=== PATIENT | female | born 1970 | race Caucasian/White ===

== ENCOUNTER → 2022-06-14 | Outpatient (CLI) | payer BC, SELFPAY ==
[2022-06-14 17:15] LABS: Absolute Lymphocyte Count 2.35 X10^3/uL (0.83-4.51); Absolute Neutrophil Count 5.3 X10^3/uL (2.0-7.7); Basophil# 0.09 X10^3/uL; Eosinophil# 0.37 X10^3/uL; Eosinophils% 4.2 % (0-5); Hematocrit 44.8 % (37-47); Hemoglobin 14.5 g/dL (12.0-15.0); Lymphocyte # 2.35 X10^3/ul (0.83-4.51); Lymphocyte % 26.6 % (19-41); Mean Corp Hgb Conc 32.4 g/dL (32-36); Mean Corpuscular Hgb 28.5 pg (27.0-32.0); Mean Corpuscular Volume 88.2 fL (81-99); Mean Platelet Vol. 12.5 fl (6.2-12.0); Monocyte# 0.73 X10^3/uL; Monocyte% 8.3 % (0-10); NRBC Flagged by Analyzer 0 % (0-5); Neutrophil # 5.26 X10^3/uL (2.7-7.7); Neutrophil % 59.6 % (47-70); Platelet Count 249 K/mm3 (150-450); RBC Distribution Width CV 13.5 % (11.6-14.6); RBC Distribution Width SD 43.7 fl (35.1-43.9); Red Blood Count 5.08 M/mm3 (4.2-5.4); White Blood Count 8.8 K/mm3 (4.4-11.0)
[2022-06-14 18:00] LABS: ALB/GLOB Ratio 0.7 RATIO (0.9-2.4); AST(SGOT) 24 U/L (15-37); Alanine Aminotransfer ALT/SGPT 31 U/L (13-56); Albumin, Serum 3.3 g/dL (3.2-5.0); Alkaline Phosphatase 117 U/L (45-117); Anion Gap 8 (5-15); BUN 10 mg/dL (7-18); BUN/Creat Ratio 12.4 RATIO (10-20); Calcium,Total 9.7 mg/dL (8.5-10.1); Chloride 103 mmol/L (98-107); Creatinine, Serum 0.81 mg/dL (0.55-1.02); EST Glomerular Filtration Rate 79 mL/min (>60); Est Glom Filt Rate - Afr Amer 96 mL/min (>60); Globulin 4.7 g/dL (2.2-4.2); Glucose 99 mg/dL (74-106); Potassium 3.9 mmol/L (3.5-5.1); Sodium Level 137 mmol/L (136-145); Thyroid Stim Hormone (TSH) 2.64 uIU/mL (0.358-3.74)
[2022-06-14 18:06] LABS: Hepatitis C Antibody Non-Reactive (Nonreactive); Vitamin D,25 Hydroxy 15.9 ng/mL
== END | disposition home or self-care (01) ==
LOC: POLAB3 15:20
PROVIDERS: Visit Provider Family Medicine Geriatric Medicine
DX: Z00.00 Encounter for general adult medical examination without abnormal findings (principal); R53.83 Other fatigue; E55.9 Vitamin D deficiency, unspecified
CPT/HCPCS: 36415; 80053; 82306; 84443; 85025; 86803

== ENCOUNTER → 2022-06-22 | Outpatient (CLI) | payer BC, SELFPAY ==
--- NOTE | 2022-06-23 09:26 | PFT ---
INTRODUCTION: The patient is a 52-year-old female that presents for pulmonary function studies secondary to a diagnosis of wheezing. Respiratory therapy reported good patient effort. Bronchodilators were used during testing. INTERPRETATION: Forced expiration spirometry demonstrates no evidence of a large airways obstructive ventilatory defect. There was no significant response to aerosolized bronchodilators. Spirograms are of good quality and plateau normally. Body plethysmography was performed and revealed a decreased TLC to 4.3 L, 82% of predicted, indicative of a mild restrictive ventilatory impairment. Diffusing capacity by single breath CO was reduced to 55% of predicted. IMPRESSION: Mild restrictive ventilatory impairment with symmetric reduction in diffusing capacity.
== END | disposition home or self-care (01) ==
PROVIDERS: PCP Family Medicine Geriatric Medicine; Referring Provider Family Medicine Geriatric Medicine; Visit Provider Family Medicine Geriatric Medicine
DX: R06.2 Wheezing (principal)
CPT/HCPCS: 94060; 94726; 94729

== ENCOUNTER → 2022-06-29 | Outpatient (CLI) | payer BC, SELFPAY ==
--- NOTE | 2022-06-29 14:03 | VDLE_ITS ---
Reason For Study: Edema RIGHT LEFT GSV is normal. CFV is compressible, spontaneous, phasic, CFV is compressible, spontaneous, phasic, competent, and demonstrates normal competent and demonstrates normal augmentation. augmentation. FV is compressible, spontaneous, phasic, competent and demonstrates normal augmentation. POP V is compressible, spontaneous, phasic, competent and demonstrates normal augmentation. T/P Trunk is compressible. PTV is compressible. RT PerV is compressible. Vascularized lymph node measuring approximately 2.26cm x 1.14cm noted in right groin. Procedure This is a venous duplex using B-mode, color flow and spectral Doppler. Exam performed in department. The exam was diagnostic. A preliminary report was called and/or faxed to Dr. Dickey's office. VL/Venous Duplex US, Unilateral Interpretation Summary Deep veins of the right lower extremity are patent and compressible segmentally . There is no evidence of right lower extremity deep vein thrombosis. The right great sapheno us vein appears patent and compressible segmentally. Vascularized lymph node measuring approximately 2.26cm x 1.14cm noted in right groin. Ordering Physician: Lemuel Dickey Chi Referring Physician: Lemuel Dickey Chi Performed By: Gutierrez Petty RVT
== END | disposition home or self-care (01) ==
PROVIDERS: PCP Family Medicine Geriatric Medicine; Referring Provider Family Medicine Geriatric Medicine; Visit Provider Family Medicine Geriatric Medicine
DX: R60.9 Edema, unspecified (principal)
CPT/HCPCS: 93971

== ENCOUNTER → 2022-09-13 | Outpatient (CLI) | payer BC, SELFPAY ==
[2022-09-13 11:48] LABS: Absolute Neutrophil Count 6.5 X10^3/uL (2.0-7.7); Basophil# 0.09 X10^3/uL; Basophil% 0.8 % (0-1); Eosinophil# 0.32 X10^3/uL; Eosinophils% 2.9 % (0-5); Hematocrit 45.6 % (37-47); Hemoglobin 14.6 g/dL (12.0-15.0); Lymphocyte % 29.9 % (19-41); Mean Corpuscular Hgb 28.5 pg (27.0-32.0); Mean Corpuscular Volume 89.1 fL (81-99); Mean Platelet Vol. 11.6 fl (6.2-12.0); Monocyte# 0.77 X10^3/uL; NRBC Flagged by Analyzer 0 % (0-5); Neutrophil # 6.53 X10^3/uL (2.7-7.7); Platelet Count 287 K/mm3 (150-450); RBC Distribution Width CV 13.4 % (11.6-14.6); RBC Distribution Width SD 43.8 fl (35.1-43.9); Red Blood Count 5.12 M/mm3 (4.2-5.4); White Blood Count 11.1 K/mm3 (4.4-11.0)
[2022-09-13 12:33] LABS: ALB/GLOB Ratio 0.7 RATIO (0.9-2.4); AST(SGOT) 29 U/L (15-37); Alanine Aminotransfer ALT/SGPT 28 U/L (13-56); Albumin, Serum 3.3 g/dL (3.2-5.0); Alkaline Phosphatase 105 U/L (45-117); Anion Gap 2 (5-15); BUN 11 mg/dL (7-18); BUN/Creat Ratio 12.8 RATIO (10-20); Calcium,Total 9.4 mg/dL (8.5-10.1); Chloride 106 mmol/L (98-107); Creatinine, Serum 0.86 mg/dL (0.55-1.02); EST Glomerular Filtration Rate 74 mL/min (>60); Est Glom Filt Rate - Afr Amer 89 mL/min (>60); Globulin 4.7 g/dL (2.2-4.2); Glucose 110 mg/dL (74-106); Potassium 5.3 mmol/L (3.5-5.1); Sodium Level 136 mmol/L (136-145)
== END | disposition home or self-care (01) ==
LOC: LAB 11:21
PROVIDERS: PCP Family Medicine Geriatric Medicine; Referring Provider Family Medicine Geriatric Medicine; Visit Provider Family Medicine Geriatric Medicine
DX: R53.83 Other fatigue (principal)
CPT/HCPCS: 36415; 80053; 84443; 85025

== ENCOUNTER → 2022-09-15 | Outpatient (CLI) | payer BC, SELFPAY ==
[2022-09-15 09:47] LABS: Absolute Lymphocyte Count 3.14 X10^3/uL (0.83-4.51); Absolute Neutrophil Count 6.2 X10^3/uL (2.0-7.7); Basophil# 0.09 X10^3/uL; Basophil% 0.8 % (0-1); Eosinophil# 0.33 X10^3/uL; Eosinophils% 3.1 % (0-5); Hemoglobin 14.7 g/dL (12.0-15.0); Lymphocyte # 3.14 X10^3/ul (0.83-4.51); Lymphocyte % 29.3 % (19-41); Mean Corpuscular Hgb 28.6 pg (27.0-32.0); Mean Corpuscular Volume 89.5 fL (81-99); Mean Platelet Vol. 11.9 fl (6.2-12.0); Monocyte# 0.89 X10^3/uL; Monocyte% 8.3 % (0-10); NRBC Flagged by Analyzer 0 % (0-5); Neutrophil % 57.9 % (47-70); Platelet Count 270 K/mm3 (150-450); RBC Distribution Width CV 13.5 % (11.6-14.6); RBC Distribution Width SD 44.5 fl (35.1-43.9); Red Blood Count 5.14 M/mm3 (4.2-5.4); White Blood Count 10.7 K/mm3 (4.4-11.0)
[2022-09-15 10:22] LABS: ALB/GLOB Ratio 0.7 RATIO (0.9-2.4); AST(SGOT) 12 U/L (15-37); Alanine Aminotransfer ALT/SGPT 26 U/L (13-56); Albumin, Serum 3.3 g/dL (3.2-5.0); Alkaline Phosphatase 114 U/L (45-117); Anion Gap 6 (5-15); BUN 12 mg/dL (7-18); BUN/Creat Ratio 14.1 RATIO (10-20); Calcium,Total 9.7 mg/dL (8.5-10.1); Chloride 104 mmol/L (98-107); Creatinine, Serum 0.85 mg/dL (0.55-1.02); EST Glomerular Filtration Rate 74 mL/min (>60); Est Glom Filt Rate - Afr Amer 90 mL/min (>60); Globulin 4.7 g/dL (2.2-4.2); Glucose 76 mg/dL (74-106); Potassium 4.1 mmol/L (3.5-5.1); Sodium Level 140 mmol/L (136-145); Thyroid Stim Hormone (TSH) 5.09 uIU/mL (0.358-3.74)
== END | disposition home or self-care (01) ==
LOC: LAB 09:03
PROVIDERS: PCP Family Medicine Geriatric Medicine; Visit Provider Family Medicine Geriatric Medicine
DX: R53.83 Other fatigue (principal)
CPT/HCPCS: 36415; 80053; 84443; 85025

== ENCOUNTER → 2022-11-06 | Outpatient (CLI) | payer BC, SELFPAY ==
[2022-11-06 16:15] LABS: Thyroid Stim Hormone (TSH) 1.72 uIU/mL (0.358-3.74)
== END | disposition home or self-care (01) ==
LOC: LAB 14:41
PROVIDERS: PCP Family Medicine Geriatric Medicine; Referring Provider Family Medicine Geriatric Medicine; Visit Provider Family Medicine Geriatric Medicine
DX: E03.9 Hypothyroidism, unspecified (principal)
CPT/HCPCS: 36415; 84443

== ENCOUNTER → 2022-12-14 | Outpatient (CLI) | payer BC, SELFPAY ==
[2022-12-14 11:25] LABS: Absolute Lymphocyte Count 2.97 X10^3/uL (0.83-4.51); Absolute Neutrophil Count 6.7 X10^3/uL (2.0-7.7); Basophil# 0.08 X10^3/uL; Basophil% 0.7 % (0-1); Eosinophil# 0.31 X10^3/uL; Eosinophils% 2.9 % (0-5); Hematocrit 43.7 % (37-47); Hemoglobin 14.4 g/dL (12.0-15.0); Lymphocyte # 2.97 X10^3/ul (0.83-4.51); Lymphocyte % 27.3 % (19-41); Mean Corpuscular Hgb 29.4 pg (27.0-32.0); Mean Corpuscular Volume 89.2 fL (81-99); Mean Platelet Vol. 12.4 fl (6.2-12.0); Monocyte# 0.77 X10^3/uL; Monocyte% 7.1 % (0-10); NRBC Flagged by Analyzer 0 % (0-5); Neutrophil # 6.69 X10^3/uL (2.7-7.7); Neutrophil % 61.6 % (47-70); Platelet Count 233 K/mm3 (150-450); RBC Distribution Width CV 13.6 % (11.6-14.6); RBC Distribution Width SD 44.1 fl (35.1-43.9); White Blood Count 10.9 K/mm3 (4.4-11.0)
[2022-12-14 12:43] LABS: ALB/GLOB Ratio 0.7 RATIO (0.9-2.4); AST(SGOT) 15 U/L (15-37); Alanine Aminotransfer ALT/SGPT 25 U/L (13-56); Albumin, Serum 3.4 g/dL (3.2-5.0); Alkaline Phosphatase 117 U/L (45-117); Anion Gap 5 (5-15); BUN 11 mg/dL (7-18); BUN/Creat Ratio 14.1 RATIO (10-20); Calcium,Total 9.3 mg/dL (8.5-10.1); Chloride 106 mmol/L (98-107); Creatinine, Serum 0.78 mg/dL (0.55-1.02); EST Glomerular Filtration Rate 82 mL/min (>60); Est Glom Filt Rate - Afr Amer 100 mL/min (>60); Globulin 4.7 g/dL (2.2-4.2); Glucose 91 mg/dL (74-106); Potassium 3.9 mmol/L (3.5-5.1); Protein, Total 8.1 g/dL (6.4-8.2); Sodium Level 138 mmol/L (136-145); Thyroid Stim Hormone (TSH) 1.22 uIU/mL (0.358-3.74)
== END | disposition home or self-care (01) ==
LOC: POLAB3 10:43
PROVIDERS: PCP Family Medicine Geriatric Medicine; Visit Provider Family Medicine Geriatric Medicine
DX: E87.5 Hyperkalemia (principal); R53.83 Other fatigue
CPT/HCPCS: 36415; 80053; 84443; 85025

== ENCOUNTER → 2023-04-11 | Outpatient (CLI) | payer BC, SELFPAY ==
[2023-04-11 10:37] LABS: Absolute Lymphocyte Count 2.95 X10^3/uL (0.83-4.51); Basophil# 0.09 X10^3/uL; Basophil% 0.9 % (0-1); Eosinophils% 3.9 % (0-5); Hematocrit 46.2 % (37-47); Hemoglobin 14.8 g/dL (12.0-15.0); Lymphocyte # 2.95 X10^3/ul (0.83-4.51); Mean Corpuscular Hgb 28.6 pg (27.0-32.0); Mean Corpuscular Volume 89.2 fL (81-99); Mean Platelet Vol. 11.9 fl (6.2-12.0); Monocyte% 6.9 % (0-10); NRBC Flagged by Analyzer 0 % (0-5); Neutrophil # 5.98 X10^3/uL (2.7-7.7); Neutrophil % 58.7 % (47-70); Platelet Count 275 K/mm3 (150-450); RBC Distribution Width CV 13.5 % (11.6-14.6); Red Blood Count 5.18 M/mm3 (4.2-5.4); White Blood Count 10.2 K/mm3 (4.4-11.0)
[2023-04-11 11:16] LABS: ALB/GLOB Ratio 0.7 RATIO (0.9-2.4); AST(SGOT) 16 U/L (15-37); Alanine Aminotransfer ALT/SGPT 26 U/L (13-56); Albumin, Serum 3.3 g/dL (3.2-5.0); Alkaline Phosphatase 134 U/L (45-117); Anion Gap 7 (5-15); BUN 11 mg/dL (7-18); BUN/Creat Ratio 12.8 RATIO (10-20); Calcium,Total 9.7 mg/dL (8.5-10.1); Chloride 105 mmol/L (98-107); Creatinine, Serum 0.86 mg/dL (0.55-1.02); EST Glomerular Filtration Rate 74 mL/min (>60); Est Glom Filt Rate - Afr Amer 89 mL/min (>60); Globulin 4.6 g/dL (2.2-4.2); Glucose 146 mg/dL (74-106); Potassium 3.8 mmol/L (3.5-5.1); Protein, Total 7.9 g/dL (6.4-8.2); Sodium Level 138 mmol/L (136-145); Thyroid Stim Hormone (TSH) 2.39 uIU/mL (0.358-3.74)
== END | disposition home or self-care (01) ==
LOC: POLAB3 10:10
PROVIDERS: PCP Family Medicine Geriatric Medicine; Visit Provider Family Medicine Geriatric Medicine
DX: R53.83 Other fatigue (principal)
CPT/HCPCS: 36415; 80053; 84443; 85025

== ENCOUNTER → 2023-06-18 | Outpatient (CLI) | payer BC, SELFPAY ==
[2023-06-18 13:01] LABS: Absolute Lymphocyte Count 2.51 X10^3/uL (0.83-4.51); Absolute Neutrophil Count 5.6 X10^3/uL (2.0-7.7); Basophil# 0.08 X10^3/uL; Basophil% 0.9 % (0-1); Eosinophil# 0.33 X10^3/uL; Eosinophils% 3.6 % (0-5); Hematocrit 42.4 % (37-47); Hemoglobin 13.8 g/dL (12.0-15.0); Lymphocyte # 2.51 X10^3/ul (0.83-4.51); Lymphocyte % 27.5 % (19-41); Mean Corp Hgb Conc 32.5 g/dL (32-36); Mean Corpuscular Hgb 28.9 pg (27.0-32.0); Mean Corpuscular Volume 88.7 fL (81-99); Mean Platelet Vol. 12.5 fl (6.2-12.0); Monocyte# 0.59 X10^3/uL; Monocyte% 6.5 % (0-10); NRBC Flagged by Analyzer 0 % (0-5); Neutrophil # 5.58 X10^3/uL (2.7-7.7); Neutrophil % 61.1 % (47-70); Platelet Count 217 K/mm3 (150-450); RBC Distribution Width CV 13.4 % (11.6-14.6); RBC Distribution Width SD 43.5 fl (35.1-43.9); Red Blood Count 4.78 M/mm3 (4.2-5.4); White Blood Count 9.1 K/mm3 (4.4-11.0)
[2023-06-18 13:44] LABS: ALB/GLOB Ratio 0.7 RATIO (0.9-2.4); AST(SGOT) 18 U/L (15-37); Alanine Aminotransfer ALT/SGPT 21 U/L (13-56); Albumin, Serum 3.3 g/dL (3.2-5.0); Alkaline Phosphatase 113 U/L (45-117); Anion Gap 5 (5-15); BUN 10 mg/dL (7-18); BUN/Creat Ratio 13.2 RATIO (10-20); Calcium,Total 9.4 mg/dL (8.5-10.1); Chloride 107 mmol/L (98-107); Creatinine, Serum 0.76 mg/dL (0.55-1.02); EST Glomerular Filtration Rate 85 mL/min (>60); Est Glom Filt Rate - Afr Amer 103 mL/min (>60); Globulin 4.5 g/dL (2.2-4.2); Glucose 120 mg/dL (74-106); Potassium 3.9 mmol/L (3.5-5.1); Protein, Total 7.8 g/dL (6.4-8.2); Sodium Level 138 mmol/L (136-145); Thyroid Stim Hormone (TSH) 2.04 uIU/mL (0.358-3.74)
== END | disposition home or self-care (01) ==
LOC: POLAB3 12:01
PROVIDERS: PCP Family Medicine Geriatric Medicine; Visit Provider Family Medicine Geriatric Medicine
DX: R53.83 Other fatigue (principal)
CPT/HCPCS: 36415; 80053; 84443; 85025

== ENCOUNTER → 2023-07-06 | Outpatient (CLI) | payer BC, SELFPAY ==
--- NOTE | 2023-07-06 08:06 | BI_ITS ---
MAMMOGRAPHY - BILATERAL SCREENING REASON FOR EXAM: Female, 53 years old. Routine annual screening examination. PERTINENT HISTORY: Aunt with breast cancer. TECHNIQUE: Digital bilateral breast malick (3D mammographic acquisition) in the CC and MLO projections. 2-D mediolateral oblique (MLO) and craniocaudad (CC) views of both breasts were obtained. CAD: Full Field Digital Mammography with Computer Added Detection was performed. COMPARISON: No comparison mammograms available at this time. If any prior films become available, an addendum to this report can be generated. FINDINGS: Breast Composition: The breasts are almost entirely fatty. There are no dominant masses or suspicious calcifications. Fat-containing bilateral axillary lymph nodes. No other significant abnormalities are identified. BI/SCRN MAMM (CAD)W/MALICK BILAT IMPRESSION: Negative screening mammogram. Yearly followup mammogram recommended. (A) ASSESSMENT CATEGORY: BIRADS Category 2: Benign. A letter regarding these results will be sent to the patient by the facility within 30 days. Approximately 10% of breast cancers are not detected by mammography. A normal mammogram should not delay biopsy of a clinically suspicious abnormality. [id number] Electronically Signed: Lizandro Larson MD at 9:01 EDT ,
--- NOTE | 2023-07-06 08:36 | VDLE_ITS ---
Reason For Study: BLE swelling RIGHT LEFT GSV is normal. GSV is normal. CFV is compressible, spontaneous, phasic, CFV is compressible, spontaneous, phasic, competent and demonstrates normal competent, and demonstrates normal augmentation. augmentation. FV is compressible, spontaneous, phasic, FV is compressible, spontaneous, phasic, competent and demonstrates normal competent and demonstrates normal augmentation. augmentation. POP V is compressible, spontaneous, phasic, POP V is compressible, spontaneous, phasic, competent and demonstrates normal competent and demonstrates normal augmentation. augmentation. T/P Trunk is compressible. T/P Trunk is compressible. PTV is compressible. PTV is compressible. RT PerV is compressible. LT PerV is compressible. Procedure This is a venous duplex using B-mode, color flow and spectral Doppler. Exam performed in department. The exam was diagnostic. VL/Venous Duplex US - Rohan Extrem Interpretation Summary No evidence for acute deep venous thrombosis bilateral lower extremities with p atent and compressible bilateral great saphenous veins. Ordering Physician: Lemuel Dickey Chi Referring Physician: Lemuel Dickey Chi Performed By: Gutierrez Petty RVT
== END | disposition home or self-care (01) ==
LOC: CVS 08:05
PROVIDERS: PCP Family Medicine Geriatric Medicine; Referring Provider Family Medicine Geriatric Medicine; Visit Provider Family Medicine Geriatric Medicine
DX: Z12.31 Encounter for screening mammogram for malignant neoplasm of breast (principal); Z80.3 Family history of malignant neoplasm of breast; M79.89 Other specified soft tissue disorders; R60.0 Localized edema; I77.9 Disorder of arteries and arterioles, unspecified; F17.210 Nicotine dependence, cigarettes, uncomplicated
CPT/HCPCS: 77063; 77067; 93970

== ENCOUNTER → 2023-07-12 | Outpatient (CLI) | payer BC, SELFPAY ==
--- NOTE | 2023-07-12 06:44 | CT_ITS ---
STUDY: LOW DOSE CT LUNG CANCER SCREENING REASON FOR EXAM: Female, 53 years old. NICOTINE DEPENDENCE 1 PPD X 20 + YRS RADIATION DOSAGE (If Supplied By Facility): CTDIvol = ( 4.02 ) mGy, DLP = ( 135.92 ) mGycm TECHNIQUE: No contrast was administered. Low dose technique was utilized (average mAS-38 and kVp 120). 1.25 mm axial source images with a slice interval of 1.25-mm were reconstructed in lung windows. 2.5 mm axial source images with a slice interval of 2.5-mm were reconstructed in lung windows. 5.0 mm axial source images with a slice interval of 5.0-mm were reconstructed in soft tissue windows. COMPARISON: None. NODULES: No suspicious nodules are seen. Emphysema: Unremarkable Endobronchial lesion: Unremarkable Aorta: Unremarkable CORONARY ARTERIES: Coronary artery calcification is seen. Heart: Unremarkable Pulmonary artery: Unremarkable Mediastinal nodes: Small benign-appearing mediastinal lymph nodes. Other chest and abdominal findings: CT/Low Dose CT Lung Screening IMPRESSION: Lung-RADS category 2 - Continue annual screening with LDCT in 12 months. IMPORTANT NOTES FOR USE: ACR Lung-RADS Version 1.1 Assessment Categories Release Date: 2018 Category: Coded 0-4 bases on nodule(s) with highest degree of suspicion. Negative screen is defined as categories 1 and 2; a positive screen is defined as categories 3 and 4. Category 3 and 4A nodules that are unchanged on interval CT should be coded as category 2, and individuals returned to screening in 12 months. Category 4X: Category 3 or 4 nodules with additional imaging findings that increase the suspicion of lung cancer, such as spiculation, GGN that doubles in size in 1 year, enlarged lymph notes, etc. Category Modifiers: S (significant finding unrelated to lung cancer) Electronically Signed: Lizandro Larson MD at 8:51 EDT ,
== END | disposition home or self-care (01) ==
LOC: CT 06:43
PROVIDERS: PCP Family Medicine Geriatric Medicine; Referring Provider Family Medicine Geriatric Medicine; Visit Provider Family Medicine Geriatric Medicine
DX: Z12.2 Encounter for screening for malignant neoplasm of respiratory organs (principal); F17.210 Nicotine dependence, cigarettes, uncomplicated
CPT/HCPCS: 71271

== ENCOUNTER 2023-10-09 17:31 | Emergency (ER) | payer BC, SELFPAY ==
[2023-10-09 17:32] VITALS: BP 118/78; PULSE 83; RESP 16; TEMP 36.6; O2SAT 98; BMI 38.1
--- NOTE | 2023-10-09 18:32 | CT_ITS ---
STUDY: CT ABDOMEN AND PELVIS WITH CONTRAST REASON FOR EXAM: Female, 53 years old. Abdominal pain, nausea and vomiting RADIATION DOSAGE (If Supplied By Facility): CTDIvol = ( 20.32 ) mGy, DLP = ( 1249.02 ) mGycm TECHNIQUE: Transaxial images were obtained from the dome of the diaphragm to the symphysis pubis without oral contrast. IV 100mL Isovue-[id number] was administered. Sagittal and coronal images were reconstructed. Individualized dose optimization techniques were used for this CT. COMPARISON: None. FINDINGS: The visualized lung bases are unremarkable. The visualized portions of the heart are within normal limits. There is hepatomegaly with diffuse hepatic enlargement. There are surgical clips in the gallbladder fossa consistent with a prior cholecystectomy. There is moderate splenomegaly. Normal pancreas. Normal bilateral adrenal glands. Normal right kidney. There is 2.6 cm cyst of the left kidney. Normal visualized stomach. Normal small intestine. Normal colon. There is non-visualization of the appendix. There is diffuse atherosclerotic calcification of the abdominal aorta, without a demonstrated aneurysm. Normal inferior vena cava. Normal retroperitoneum. Normal urinary bladder. There is absence of the uterus consistent with a prior hysterectomy. There is no free fluid in the abdomen or pelvis. Normal abdominal wall. There is degenerative change of the spine. CT/Abdomen/Pelvis W IV Cont ONLY IMPRESSION: Hepatosplenomegaly. Prior cholecystectomy. Electronically Signed: Rui Kenny MD at 20:51 EDT ,
--- NOTE | 2023-10-09 18:33 | ED.VIS.GI ---
HPI HPI - GI History of Present Illness Chief Complaint: Constipation Narrative Narrative: 53-year-old female past medical history of thyroid problems, restless leg, presents with constipation that she has had for 2 weeks. While she states that she might go once or twice a week/have a bowel movement, she has not been able to have a bowel movement for the last 2 weeks. She has had nausea and vomiting intermittently over the last 2 weeks as well. She is only vomited once in the last 24 hours. She has tried every [id number] method to have a bowel movement including suppositories. Past surgical abdominal history includes cholecystectomy and hysterectomy. She describes diffuse abdominal cramping, and epigastric pain as well. PFSH PFSH Home Medications ?Medication ?Instructions ?Recorded ?Last Taken ?Type levothyroxine 25 mcg tablet 25 mcg PO DAILY 10/09/23 Unknown History (Synthroid) pramipexole 0.5 mg tablet PO 10/09/23 Unknown History Allergy/AdvReac Type Severity Reaction Status Date / Time No Known Allergies Allergy Verified 10/09/23 17:33 Social History Smoking Status: Current every day smoker tobacco type: cigarettes ROS ROS ED ROS Narrative Constitutional: No fever, no chills. HEENT: No sore throat. No neck pain. No loss of vision. No rhinorrhea. Cardiovascular: No chest pain. No palpitations. No pedal edema. Respiratory: No cough, no shortness of breath. Abdominal: Positive abdominal pain. Positive nausea and vomiting. Positive constipation. Genitourinary: No dysuria. No hematuria. Musculoskeletal: No myalgias. No arthralgias. Neurologic: No headaches. No dizziness. No lightheadedness. Skin: No rash. No change in color. Psychiatric: No depression. No anxiety. EXAM Physical Exam Narrative Exam Narrative: Afebrile. Vital signs noted. HEENT: Normocephalic. Atraumatic. PERRL, EOMI. Neck soft and supple. No point tenderness or step off. Cardiovascular: Regular rate and rhythm. No murmurs, rubs, or gallops appreciated. Respiratory: No tachypnea. Lungs clear to auscultation bilaterally. Gastrointestinal: Abdomen soft, diffuse tenderness to palpation. Hypoactive bowel sounds. No rebound or guarding. Neurological: Awake. Alert. Nonfocal, nonlateralizing. Skin: No rash. Normal color. No pallor. Musculoskeletal: No pedal edema. Full range of motion extremities. Const Vital Signs: 10/09/23 17:32 10/09/23 19:31 10/09/23 21:00 Temperature 98 F Temperature Source Temporal Pulse Rate 83 79 75 Respiratory Rate 16 18 16 Blood Pressure 118/78 113/37 L Blood Pressure Mean 91 62 Pulse Ox 98 95 95 Oxygen Delivery Method Room Air Room Air MDM MDM MDM Narrative Medical decision making narrative: In the differential diagnosis is bowel obstruction versus constipation versus diverticulitis versus pancreatitis. Comprehensive workup was pursued. I reviewed her laboratory work and she has normal white count of 8.8 with hemoglobin normal at 13.8, hematocrit 41.9, platelet count slightly low at 130. I think this is nonspecific and I do not feel she needs transfusion of platelets. CMP was reviewed and shows sodium slightly low at 134 she was bolused normal saline 1 L intravenously, normal potassium of 4.0, BUN of 11 and creatinine 0.79. Glucose is elevated at 110 but anion gap low at 2. LFTs are remarkable for slightly elevated alk phos of 175 which I also think is nonspecific. Lipase is normal at 42 so I doubt pancreatitis. I reviewed the radiology report of the CT of the abdomen and pelvis which shows no evidence of obstruction, normal colon. It does not comment on fecal impaction or moderate stool burden. At this point in time, I am unsure as to the cause of her reported constipation but I do not feel that she needs stool softener or laxative. Regarding her nausea and vomiting, I offered her an antiemetic but she declined. Upon repeat examination at approximately 2100, she is resting comfortably and her abdomen is soft. She feels moderately improved. She has follow-up with her primary care provider on Sunday, 3 days from now. I feel she can be discharged to follow-up. Return instructions to the emergency department were reviewed. Disposition is discharged home in stable condition. History & Record Review Discussion w/independent historian: Patient Additional record(s) reviewed:: Prior labs Lab Data Attestation: I reviewed the patient's lab results. Labs: Laboratory Results - last 24 hr 10/09/23 10/09/23 18:40 19:28 WBC 8.8 RBC 4.97 Hgb 13.8 Hct 41.9 MCV 84.3 MCH 27.8 MCHC 32.9 RDW Std Deviation 42.9 RDW Coeff of Breanne 13.9 Plt Count 130 L MPV 12.8 H Immature Gran % (Auto) 1.000 H Neut % (Auto) 50.2 Lymph % (Auto) 34.4 [place] % (Auto) 5.8 Eos % (Auto) 7.7 H Baso % (Auto) 0.9 Absolute Neuts (auto) 4.4 Absolute Lymphs (auto) 3.02 Nucleated RBC % 0 Differential Comment SCANNED Reactive Lymphocytes 1+ Sodium Cancelled 134 L Potassium Cancelled 4.0 Chloride Cancelled 103 Carbon Dioxide Cancelled 29.0 Anion Gap Cancelled 2 L BUN Cancelled 11 Creatinine Cancelled 0.79 Estim Creat Clear Calc Cancelled 102.05 Est GFR (MDRD) Af Amer Cancelled 98 Est GFR (MDRD) Non-Af Cancelled 81 BUN/Creatinine Ratio Cancelled 14.0 Glucose Cancelled 110 H Calcium Cancelled 8.7 Total Bilirubin Cancelled 0.60 AST Cancelled 37 ALT Cancelled 43 Alkaline Phosphatase Cancelled 175 H Total Protein Cancelled 6.7 Albumin Cancelled 2.7 L Globulin Cancelled 4.0 Albumin/Globulin Ratio Cancelled 0.7 L Lipase Cancelled 42 Radiography Diagnostic Testing: Clinical Impression(s) from Imaging Studies Abdomen/Pelvis CT 10/09/23 18:32 IMPRESSION: Hepatosplenomegaly. Prior cholecystectomy. Electronically Signed: Rui Kenny MD at 20:51 EDT Reading Location ID and State: [address] [place] [address] , Service support , Discharge Plan Triage Chief Complaint: Constipation ED Provider: Charles Plasencia Dx/Rx/DC Orders Clinical Impression: Abdominal pain, Constipation, Nausea and vomiting Instructions: ED Abdominal Pain Unkn Cause Fem, ED Vomiting (Adult) Prescriptions: No Action levothyroxine [Synthroid] 25 mcg tablet 25 mcg PO DAILY pramipexole 0.5 mg tablet PO Primary Care Provider: Lemuel Dickey Chi Referrals: Lemuel Dickey Chi, MD [Primary Care Provider] - Keep Judy appointment Activity Restrictions/Additional Instructions: Return with fever, increased pain, new or worsening symptoms. Otherwise, follow-up with your primary care provider as scheduled on Sunday. Print Language: Frisian Disposition Disposition: Home, Self Care
[2023-10-09] MEDS: 0.9% Normal Saline (1000mL) 1,000 ML 999 ML IV (18:45)
[2023-10-09 18:49] LABS: Absolute Lymphocyte Count 3.02 X10^3/uL (0.83-4.51); Absolute Neutrophil Count 4.4 X10^3/uL (2.0-7.7); Basophil# 0.08 X10^3/uL; Basophil% 0.9 % (0-1); Eosinophil# 0.68 X10^3/uL; Eosinophils% 7.7 % (0-5); Hematocrit 41.9 % (37-47); Hemoglobin 13.8 g/dL (12.0-15.0); Lymphocyte # 3.02 X10^3/ul (0.83-4.51); Lymphocyte % 34.4 % (19-41); Mean Corp Hgb Conc 32.9 g/dL (32-36); Mean Corpuscular Hgb 27.8 pg (27.0-32.0); Mean Corpuscular Volume 84.3 fL (81-99); Mean Platelet Vol. 12.8 fl (6.2-12.0); Monocyte# 0.51 X10^3/uL; Monocyte% 5.8 % (0-10); NRBC Flagged by Analyzer 0 % (0-5); Neutrophil # 4.41 X10^3/uL (2.7-7.7); Neutrophil % 50.2 % (47-70); POSITIVE MORPHOLOGY YES; Platelet Count 130 K/mm3 (150-450); RBC Distribution Width CV 13.9 % (11.6-14.6); RBC Distribution Width SD 42.9 fl (35.1-43.9); Red Blood Count 4.97 M/mm3 (4.2-5.4); White Blood Count 8.8 K/mm3 (4.4-11.0)
[2023-10-09 18:53] LABS: Differential Indicated SCAN CRITERIA MET
[2023-10-09 19:10] LABS: Differential Comment SCANNED; Reactive Lymphocyte 1+
[2023-10-09 19:31] VITALS: BP 113/37; PULSE 79; RESP 18; O2SAT 95
[2023-10-09 19:48] LABS: ALB/GLOB Ratio 0.7 RATIO (0.9-2.4); AST(SGOT) 37 U/L (15-37); Alanine Aminotransfer ALT/SGPT 43 U/L (13-56); Albumin, Serum 2.7 g/dL (3.2-5.0); Alkaline Phosphatase 175 U/L (45-117); Anion Gap 2 (5-15); BUN 11 mg/dL (7-18); Calcium,Total 8.7 mg/dL (8.5-10.1); Chloride 103 mmol/L (98-107); Creatinine, Serum 0.79 mg/dL (0.55-1.02); EST Glomerular Filtration Rate 81 mL/min (>60); Est Glom Filt Rate - Afr Amer 98 mL/min (>60); Estimated Creatinine Clearance 102.05 ml/min; Glucose 110 mg/dL (74-106); Lipase 42 U/L (13-75); Protein, Total 6.7 g/dL (6.4-8.2); Sodium Level 134 mmol/L (136-145)
[2023-10-09 21:00] VITALS: PULSE 75; RESP 16; O2SAT 95
[2023-10-09 21:23] VITALS: BP 115/74; PULSE 71; RESP 16; TEMP 36.6; O2SAT 99
== END 2023-10-09 21:24 | disposition home or self-care (01) ==
PROVIDERS: Emergency Provider Emergency Medicine; PCP Family Medicine Geriatric Medicine; Visit Provider Emergency Medicine
DX: R10.9 Unspecified abdominal pain (principal); R11.2 Nausea with vomiting, unspecified; K59.00 Constipation, unspecified; R73.9 Hyperglycemia, unspecified; F17.210 Nicotine dependence, cigarettes, uncomplicated; Z79.890 Hormone replacement therapy; Z79.899 Other long term (current) drug therapy
CPT/HCPCS: 74177; 80053; 83690; 85025; 96360; 99282; J7030; Q9967

== ENCOUNTER → 2023-12-25 | Outpatient (CLI) | payer BC, SELFPAY ==
[2023-12-25 11:49] LABS: Absolute Lymphocyte Count 3.56 X10^3/uL (0.83-4.51); Absolute Neutrophil Count 3.8 X10^3/uL (2.0-7.7); Basophil# 0.08 X10^3/uL; Eosinophil# 0.31 X10^3/uL; Eosinophils% 3.7 % (0-5); Hematocrit 43.8 % (37-47); Hemoglobin 14.2 g/dL (12.0-15.0); Lymphocyte # 3.56 X10^3/ul (0.83-4.51); Lymphocyte % 42.3 % (19-41); Mean Corp Hgb Conc 32.4 g/dL (32-36); Mean Corpuscular Hgb 28.7 pg (27.0-32.0); Mean Corpuscular Volume 88.7 fL (81-99); Mean Platelet Vol. 11.8 fl (6.2-12.0); Monocyte# 0.61 X10^3/uL; Monocyte% 7.3 % (0-10); NRBC Flagged by Analyzer 0 % (0-5); Neutrophil # 3.83 X10^3/uL (2.7-7.7); Neutrophil % 45.5 % (47-70); Platelet Count 218 K/mm3 (150-450); RBC Distribution Width CV 14.5 % (11.6-14.6); RBC Distribution Width SD 46.6 fl (35.1-43.9); Red Blood Count 4.94 M/mm3 (4.2-5.4); White Blood Count 8.4 K/mm3 (4.4-11.0)
[2023-12-25 12:38] LABS: ALB/GLOB Ratio 0.8 RATIO (0.9-2.4); AST(SGOT) 14 U/L (15-37); Alanine Aminotransfer ALT/SGPT 26 U/L (13-56); Albumin, Serum 3.3 g/dL (3.2-5.0); Alkaline Phosphatase 124 U/L (45-117); Anion Gap 3 (5-15); BUN 7 mg/dL (7-18); BUN/Creat Ratio 9.8 RATIO (10-20); Calcium,Total 9.3 mg/dL (8.5-10.1); Chloride 106 mmol/L (98-107); Creatinine, Serum 0.71 mg/dL (0.55-1.02); EST Glomerular Filtration Rate 91 mL/min (>60); Est Glom Filt Rate - Afr Amer 110 mL/min (>60); Globulin 4.4 g/dL (2.2-4.2); Glucose 103 mg/dL (74-106); Potassium 4.1 mmol/L (3.5-5.1); Protein, Total 7.7 g/dL (6.4-8.2); Sodium Level 138 mmol/L (136-145)
== END | disposition home or self-care (01) ==
LOC: POLAB3 11:18
PROVIDERS: PCP Family Medicine Geriatric Medicine; Visit Provider Family Medicine Geriatric Medicine
DX: R53.83 Other fatigue (principal)
CPT/HCPCS: 36415; 80053; 84443; 85025

== ENCOUNTER → 2024-06-23 | Outpatient (CLI) | payer BC, SELFPAY ==
[2024-06-23 09:49] LABS: Absolute Lymphocyte Count 3.45 X10^3/uL (0.83-4.51); Absolute Neutrophil Count 5.6 X10^3/uL (2.0-7.7); Basophil# 0.07 X10^3/uL; Basophil% 0.7 % (0-1); Eosinophil# 0.34 X10^3/uL; Eosinophils% 3.3 % (0-5); Hematocrit 47.2 % (37-47); Hemoglobin 15.5 g/dL (12.0-15.0); Lymphocyte # 3.45 X10^3/ul (0.83-4.51); Lymphocyte % 33.7 % (19-41); Mean Corp Hgb Conc 32.8 g/dL (32-36); Mean Corpuscular Hgb 29.5 pg (27.0-32.0); Mean Corpuscular Volume 89.7 fL (81-99); Mean Platelet Vol. 12.7 fl (6.2-12.0); Monocyte# 0.77 X10^3/uL; Monocyte% 7.5 % (0-10); NRBC Flagged by Analyzer 0 % (0-5); Neutrophil # 5.57 X10^3/uL (2.7-7.7); Neutrophil % 54.5 % (47-70); Platelet Count 214 K/mm3 (150-450); RBC Distribution Width CV 13.2 % (11.6-14.6); RBC Distribution Width SD 43.4 fl (35.1-43.9); Red Blood Count 5.26 M/mm3 (4.2-5.4); White Blood Count 10.2 K/mm3 (4.4-11.0)
[2024-06-23 23:39] LABS: Cholesterol 213 mg/dL (<=200); High Density Lipoprotein 27 mg/dL; Low Density Lipoprotein Calc. 129 mg/dL; Triglycerides 284 mg/dL; Very Low Density Lipoprotein 57 mg/dL (5-40); cholesterol:hdl ratio screen 7.89
[2024-06-23 23:40] LABS: ALB/GLOB Ratio 1.1 RATIO (0.9-2.4); AST(SGOT) 19 U/L (<=31); Alanine Aminotransfer ALT/SGPT 17 U/L (<=34); Alkaline Phosphatase 106 U/L (35-104); Anion Gap 11 (5-15); BUN 10 mg/dL (4-19); BUN/Creat Ratio 12.3 RATIO (10-20); Calcium,Total 9.6 mg/dL (7.6-11.0); Carbon Dioxide 25.4 mmol/L (21.0-32.0); Chloride 101 mmol/L (98-108); Creatinine, Serum 0.84 mg/dL (0.70-1.20); EST Glomerular Filtration Rate 83 (>60); Globulin 3.6 g/dL (2.2-4.2); Glucose 141 mg/dL (70-99); Potassium 4.2 mmol/L (3.3-5.1); Protein, Total 7.7 g/dL (5.9-8.4); Sodium Level 138 mmol/L (133-145)
== END | disposition home or self-care (01) ==
PROVIDERS: PCP Family Medicine Geriatric Medicine; Visit Provider Family Medicine Geriatric Medicine
DX: R53.83 Other fatigue (principal); E78.5 Hyperlipidemia, unspecified
CPT/HCPCS: 36415; 80053; 80061; 84443; 85025

== ENCOUNTER → 2024-08-20 | Outpatient (CLI) | payer BC, SELFPAY ==
--- NOTE | 2024-08-20 09:50 | VDLE_ITS ---
Reason For Study Reason For Study: BLE EDEMA RIGHT LEFT CFV is compressible, spontaneous, phasic, competent CFV is compressible, spontaneous, phasic, competent, and demonstrates normal augmentation. and demonstrates normal augmentation. FV is compressible, spontaneous, phasic, competent FV is compressible, spontaneous, phasic, competent and demonstrates normal augmentation. and demonstrates normal augmentation. POP V is compressible, spontaneous, phasic, competent POP V is compressible, spontaneous, phasic, competent and demonstrates normal augmentation. and demonstrates normal augmentation. T/P Trunk is compressible. T/P Trunk is compressible. PTV is compressible. PTV is compressible. RT PerV is compressible. LT PerV is compressible. SFJ is competent and measures 0.73 cm. SFJ is competent and measures 0.71 cm. GSV proximal thigh measures 0.53 x 0.53 cm. GSV proximal thigh measures 0.55 x 0.56 cm. GSV at knee measures 0.50 x 0.54 cm. GSV at knee measures 0.55 x 0.58 cm. GSV is competent throughout. GSV above knee is competent. SSV mid calf is competent and measures 0.31 x 0.29 GSV below knee is INCOMPETENT for greater than 0.5 cm. seconds. Procedure SSV mid calf is competent and measures 0.30 x 0.33 Exam performed in department. cm. This is a venous duplex using B-mode, color flow and spectral Doppler. The exam was diagnostic. VL/Venous Duplex US - Rohan Extrem Interpretation Summary Deep veins of the bilateral lower extremities are patent and compressible segme ntally. There is no evidence of bilateral lower extremity deep vein thrombosis. The bilateral great saphenous veins appea r patent and compressible segmentally. Positive for reflux in the left great saphenous vein below the knee. Ordering Physician: Cyndy Quinn Referring Physician: Lemuel Dickey Chi Performed By: Gutierrez Petty RVT
--- NOTE | 2024-08-20 09:50 | ART_ITS ---
Reason For Study Reason For Study: Claudication Procedure A bilateral lower extremity continuous wave Doppler with analog waveform analysis,segmental pressures,and ankle brachial indexes without exercise. Left Segmental Pressures Left brachial= 106mmHg. Left posterior tibial artery = 138mmHg. Left dorsalis pedis artery = 135mmHg. Left digit = 89 mmHg. The left posterior tibial artery waveforms are triphasic. The left dorsalis pedis waveforms are triphasic. Right Segmental Pressures Right brachial= 115mmHg. Right posterior tibial artery = 132mmHg. Right dorsalis pedis artery = 135mmHg. Right digit = 91 mmHg. The right posterior tibial artery waveforms are triphasic. The right dorsalis pedis waveforms are triphasic. Indices The right ankle brachial index by the posterior tibial artery is 1.15. The right ankle brachial index by the dorsalis pedis is 1.17. The right digital-brachial index is 0.79. The left ankle brachial index by the posterior tibial artery is 1.20. The left ankle brachial index by the dorsalis pedis is 1.17. The left digital-brachial index is 0.77. VL/Ankle Brachial Index Interpretation Summary Right LINETTE 1.17, normal. TBI and Doppler/PVR waveforms of the right ankle normal at rest. Left LINETTE 1.2, normal. TBI and Doppler/PVR waveforms of the left ankle normal at rest. Ordering Physician: Omer Arroyo Referring Physician: Lemuel Dickey Chi Performed By: Gutierrez Petty RVT
== END | disposition home or self-care (01) ==
LOC: CVS 09:48
PROVIDERS: PCP Family Medicine Geriatric Medicine; Referring Provider Surgery Plastic and Reconstructive Surgery; Visit Provider Surgery Plastic and Reconstructive Surgery
DX: R60.0 Localized edema (principal); I70.92 Chronic total occlusion of artery of the extremities; M79.606 Pain in leg, unspecified
CPT/HCPCS: 93922; 93970

== ENCOUNTER 2024-09-25 13:30 | Outpatient (RCR) | payer BC, SELFPAY ==
[2024-09-04 14:13] VITALS: BP 102/61; PULSE 66; RESP 18; TEMP 36.7; BMI 38.3
--- NOTE | 2024-09-04 14:53 | PCM.WC.HP ---
History of Present Illness Date of Service: 09/04/24 Chief Complaint: Bilateral lower extremity edema History of Wound: PAPI HERRMANN, is a 54 F who presents to the office today for evaluation and management of significant bilateral lower extremity edema with associated lower extremity discomfort. She is known to me from a recent visit at the vascular surgery office, I have referred her here for compression wraps. She has had bilateral lower extremity edema for many years and it has been progressively worsening. The swelling gets worse as the day goes on and worse the more she is up on her feet. She used to like to walk around flee markets etc but can no longer do this. She has difficulty with any sustained activity due to her leg swelling and heaviness in addition to her chronic back pain. She does not have any wounds or weeping at present. She does also report some dyspnea on exertion with stairs or prolonged activity and also some dyspnea with lying flat. She is a smoker, reports she has had negative testing for COPD in the past. She has chronic back pain with DDD which has also been present many years, not currently following with pain management. She has had prior hysterectomy, cholecystectomy, and procedure for bladder prolapse. She denies any lymph node dissection, radiation to the abdomen or pelvis. She denies any history of known VTE. She does have compression stockings, not sure of strength. She feels like they may her legs burn and sometimes feel too tight around her toes. She wears them at night, not during the day. She does elevate her legs with resting. She has had an arterial study which demonstrated normal ABIs and waveforms bilaterally. She has had a venous reflux study which was negative for DVT and showed only focal below-knee GSV reflux on the left and no significant reflux on the right. She has not had any cardiac testing by her report. FOR[facility], [facility] Medical History Pseudoaneurysm of vertebral artery Recurrent infections Frequent headaches Gallstones Depression Carpal tunnel syndrome History of blood transfusion Back problem Bladder infection Anemia Home Medications Medication Instructions Recorded Last Taken Type levothyroxine 25 mcg tablet 25 mcg PO DAILY 10/09/23 Unknown History (Synthroid) pramipexole 0.5 mg tablet PO 10/09/23 Unknown History citalopram 20 mg tablet 20 mg PO QDAY 08/07/24 Unknown History minocycline 100 mg capsule 100 mg PO QDAY 08/07/24 Unknown History spironolactone 100 mg tablet 100 mg PO QHS 08/07/24 Unknown History Allergy/AdvReac Type Severity Reaction Status Date / Time No Known Allergies Allergy Verified 09/04/24 14:23 Family History Other Alcoholism CVA (cerebral vascular accident) Heart disease Surgical History Hx of cholecystectomy H/O: hysterectomy History of bladder surgery Social History Smoking Status: Current every day smoker tobacco type: cigarettes alcohol intake: current substance use type: does not use additional social history: pt denies vaping, denies edibles, denies marijuana use, denies aspirin,denies family history of blood clot/disorder pt uses ibuprofen as needed Vital Signs Vital Signs Vital Signs: 09/04/24 14:13 Temperature 98.1 F Temperature Source Temporal Pulse Rate 66 Respiratory Rate 18 Blood Pressure 102/61 Blood Pressure Mean 74 Blood Pressure Source Monitor Weight Weight: 244 lb 14.846 oz Body Mass Index (BMI) 38.3 Physical Exam Narrative Const General: cooperative, comfortable and no acute distress Nutritional Appearance: obese Orientation: alert, awake and oriented x3 HENMT Head: normocephalic and atraumatic Ears: hearing grossly normal bilaterally and external ears normal Nose: external nose normal Eyes General: appearance normal, both eyes and all related structures EOM: EOM intact bilaterally Neck Neck: normal visual inspection and trachea midline Resp Effort & Inspection: normal respiratory effort, able to speak in complete sentences, no grunting, not labored, no respiratory distress and no retractions Cardio Rate: regular rate Rhythm: regular rhythm Pulses: radial pulses present, posterior tibial pulses present and dorsalis pedis present Skin General: no rashes or lesions noted Wounds: no wounds Neuro General: moves all extremities, no focal motor deficits and CN's II-XI intact bilaterally Speech: speech normal Extremities Lower Extremity Edema: +2: Bilateral and Color Changes: Bilateral Veins: Bilateral: Lipodermatosclerosis Additional Details: Bilateral lower extremity edema with circumference measurements as follows: Right ankle: 27 cm Right calf: 44 cm Left ankle: 27 cm Left calf: 46 cm Psych Appearance: grossly normal Mental Status: mental status grossly normal Affect: normal affect Speech and Movement: speech and movement normal Attitude: cooperative Judgment: judgment good Debridement Note Debridement Note No debridement was completed: No debridement was completed today Post-Debridement Measurements and Additional Note: Post-Debridement Measurements/Treatment WC - Nurse 1 - General Ulcer Assessment Start: 09/04/24 14:12 Freq: Status: Active Protocol: DANIELA Activity Type Activity Date Activity User E-sign Co-sign Detail Recorded Client Recorded Date Recorded By Document 09/04/24 14:13 DL [id number] 09/04/24 14:20 DL 09/04/24 14:13 WC - Today's Visit Information Type of service Initial Visit Arrival Mode Ambulatory Transfer Assistance None Patient Identification Verified (Name & Yes ) Patient Requires Transmission-Based No Precautions Height and Weight Height 5 ft 7 in Weight 244 lb 14.846 oz Weight in Pounds 244.9 lbs Weight Measurement Method Stated by Patient Body Mass Index (BMI) 38.3 BMI Classification Obese Vital Signs Temperature (97.8 F-99.1 F) 98.1 F Temperature Source Temporal Pulse Rate (60-100) 66 Pulse Location Monitor Respiratory Rate (12-18) 18 Respiratory rate source Observation Blood Pressure (90/60-120/80) 102/61 Blood Pressure Mean 74 Source Monitor Pain Scale: 0-10 Numeric Is Patient Pain Free? Yes Communication Assessment Preferred language Colombian Able to Read Yes Able to Write Yes Communication Tools None Right Hearing Abillity Normal Left Hearing Abillity Normal Visual Assistive Devices Glasses Teaching Assessment Preferences Verbal,Written Barriers to Learning None Readiness To Learn Fair Willingness to Engage in Self Management Med Activies Readiness to Engage in Self Management Med Activities Anxiety Level Calm Cooperation Cooperative Perception Coherent Interest in Health Problem Asks Questions Education Importance Acknowledges Need Does Patient Smoke tobacco or other Yes substances Smoking Status Current every day smoker Is Patient Diabetic No Functional Assessment Recent Decline in Ability to Perform Denies Any Declines WC - Nurse 1 - General Ulcer Measurement Start: 09/04/24 14:12 Freq: Status: Active Protocol: Activity Type Activity Date Activity User E-sign Co-sign Detail Recorded Client Recorded Date Recorded By Document 09/04/24 14:13 DL [id number] 09/04/24 14:20 DL 09/04/24 14:13 Wound Center Nurse 1 Right Calf (cm) 44 Right Ankle (cm) 27 Left Calf (cm) 46 Left Ankle (cm) 27 WC - Nurse 2 - General Ulcer CM Notes Start: 09/04/24 14:12 Freq: Status: Active Protocol: Activity Type Activity Date Activity User E-sign Co-sign Detail Recorded Client Recorded Date Recorded By Document 09/04/24 14:27 GM [id number] 09/04/24 14:28 09/04/24 14:27 Pain Scale: 0-10 Numeric Is Patient Pain Free? Yes - Nurse 3 - General Ulcer D/C NN Start: 09/04/24 14:12 Freq: Status: Active Protocol: Activity Type Activity Date Activity User E-sign Co-sign Detail Recorded Client Recorded Date Recorded By Document 09/04/24 14:44 [id number] [id number] 09/04/24 14:44 KW 09/04/24 14:44 Wound Care Center Nurse 3 BLE -Lotion applied to leg before Yes compression wrap -Multi-Layered Wrap Application Multi-Layer Comp - Bilat ($ ) -Multi-Layer Compression Bilat (Qty 1 applied) Pain Scale: 0-10 Numeric Is Patient Pain Free? Yes WC - Visit Discharge Discharge Condition Stable Ambulatory Status Ambulatory Transportation Private Auto Medication Reconcilliation completed & No provided to patient/care provider Clinical Summary of Care Provided Yes Charges/Coding Visit Charges Office Visits / Consults: 40842 OV L3 Est 20min Assessment/Plan Assessment/Plan (1) Lymphedema: CODE(S): I89.0 - Lymphedema, not elsewhere classified (2) Lower extremity edema: CODE(S): R60.0 - Localized edema (3) Lipodermatosclerosis: CODE(S): M79.3 - Panniculitis, unspecified PLAN: Plan Will apply 3M wraps to the bilateral lower extremities for compression. These will remain in place for 1 week. She is instructed to keep these clean and dry. In the future, plan to order velcro compression garments once we feel she is closer to her baseline lower extremity size. Pending progress with these conservative compression efforts will consider lymphedema pumps as well. She will return in 1 week, sooner as needed.
--- NOTE | 2024-09-05 08:47 | WC ---
PHOTO 09/04/24
[2024-09-11 13:50] VITALS: BP 101/64; PULSE 63; RESP 18; TEMP 36.7; BMI 38.3
--- NOTE | 2024-09-11 14:16 | PN.PCM_ITS ---
History of Present Illness Date of Service: 09/11/24 Chief Complaint: Bilateral lower extremity edema History of Wound: HEAVEN HERRMANN, is a 54 F who presents to the office today for evaluation and management of significant bilateral lower extremity edema with associated lower extremity discomfort. She is known to me from a recent visit at the vascular surgery office, I have referred her here for compression wraps. She has had bilateral lower extremity edema for many years and it has been progressively worsening. The swelling gets worse as the day goes on and worse the more she is up on her feet. She used to like to walk around [employer] etc but can no longer do this. She has difficulty with any sustained activity due to her leg swelling and heaviness in addition to her chronic back pain. She does not have any wounds or weeping at present. She does also report some dyspnea on exertion with stairs or prolonged activity and also some dyspnea with lying flat. She is a smoker, reports she has had negative testing for COPD in the past. She has chronic back pain with DDD which has also been present many years, not currently following with pain management. She has had prior hysterectomy, cholecystectomy, and procedure for bladder prolapse. She denies any lymph node dissection, radiation to the abdomen or pelvis. She denies any history of known VTE. She does have compression stockings, not sure of strength. She feels like they may her legs burn and sometimes feel too tight around her toes. She wears them at night, not during the day. She does elevate her legs with resting. She has had an arterial study which demonstrated normal ABIs and waveforms bilaterally. She has had a venous reflux study which was negative for DVT and showed only focal below-knee GSV reflux on the left and no significant reflux on the right. She has not had any cardiac testing by her report. Subjective Subjective Heaven has done very well with the 3M wraps this week, she wore them all week. She reports that she has noticed a big improvement in how her legs feel and in their size even though she does still have persistent edema. She reports that whenever the wraps started to feel tight she elevated her legs as instructed and this helped a lot. She has been consistent with elevating her legs at all times of rest and staying active throughout the day. Objective Data Objective Data Vital Signs: Vital Signs Temp Pulse Resp BP 98.1 F 63 18 101/64 09/11/24 13:50 09/11/24 13:50 09/11/24 13:50 09/11/24 13:50 Weight: 244 lb 14.846 oz Body Mass Index (BMI) 38.3 Charges/Coding Visit Charges Office Visits / Consults: [id number] OV L3 Est 20min Physical Exam Narrative Const General: cooperative, comfortable and no acute distress Nutritional Appearance: obese Orientation: alert, awake and oriented x3 HENMT Head: normocephalic and atraumatic Ears: hearing grossly normal bilaterally and external ears normal Nose: external nose normal Eyes General: appearance normal, both eyes and all related structures EOM: EOM intact bilaterally Neck Neck: normal visual inspection and trachea midline Resp Effort & Inspection: normal respiratory effort, able to speak in complete sentences, no grunting, not labored, no respiratory distress and no retractions Cardio Rate: regular rate Rhythm: regular rhythm Pulses: radial pulses present, posterior tibial pulses present and dorsalis pedis present Skin General: no rashes or lesions noted Wounds: no wounds Neuro General: moves all extremities, no focal motor deficits and CN's II-XI intact bilaterally Speech: speech normal Extremities Lower Extremity Edema: +2: Bilateral and Color Changes: Bilateral Veins: Bilateral: Lipodermatosclerosis Additional Details: Bilateral lower extremity edema with circumference measurements as follows: Right ankle: 26.7 cm Right calf: 38.5 cm Left ankle: 24.7 cm Left calf: 39.3 cm Psych Appearance: grossly normal Mental Status: mental status grossly normal Affect: normal affect Speech and Movement: speech and movement normal Attitude: cooperative Judgment: judgment good Debridement Note Debridement Note No debridement was completed: No debridement was completed today Post-Debridement Measurements and Additional Note: Post-Debridement Measurements/Treatment - Nurse 1 - General Ulcer Assessment Start: 09/04/24 14:12 Freq: Status: Active Protocol: BETTE.MELISSA Activity Type Activity Date Activity User E-sign Co-sign Detail Recorded Client Recorded Date Recorded By Document 09/04/24 14:13 DL [id number] 09/04/24 14:20 DL Document 09/11/24 13:50 DL [id number] 09/11/24 13:58 DL 09/04/24 09/11/24 14:13 13:50 - Today's Visit Information Type of service Initial Visit Follow-up Visit (Physician/REPORTING ANALYST ) Arrival Mode Ambulatory Ambulatory Transfer Assistance None None Patient Identification Verified (Name & Yes Yes ) Patient Requires Transmission-Based No No Precautions Height and Weight Height 5 ft 7 in Weight 244 lb 14.846 oz Weight in Pounds 244.9 lbs Weight Measurement Method Stated by Patient Body Mass Index (BMI) 38.3 38.3 BMI Classification Obese Obese Vital Signs Temperature (97.8 F-99.1 F) 98.1 F 98.1 F Temperature Source Temporal Temporal Pulse Rate (60-100) 66 63 Pulse Location Monitor Monitor Respiratory Rate (12-18) 18 18 Respiratory rate source Observation Observation Blood Pressure (90/60-120/80) 102/61 101/64 Blood Pressure Mean (mm Hg) 74 76 Source Monitor Monitor History Since Last Visit- (Skip if this is Patient's initial visit) Have you changed medications since your No last visit? Any new allergies or adverse reactions No Had a fall/change in ADL's that may No increase risk of falls Signs or symptoms of abuse and/or No neglect since last visit Have you been in the hospital since your No last visit? Has dressing in place as prescribed No Has compression in place as prescribed Yes Has offloadiing in place as prescribed N/A Experienced any changes in pain level or No management Pain Scale: 0-10 Numeric Is Patient Pain Free? Yes Yes Communication Assessment Preferred language Amharic Able to Read Yes Able to Write Yes Communication Tools None Right Hearing Abillity Normal Left Hearing Abillity Normal Visual Assistive Devices Glasses Teaching Assessment Preferences Verbal,Written Barriers to Learning None Readiness To Learn Fair Willingness to Engage in Self Management Med Activies Readiness to Engage in Self Management Med Activities Anxiety Level Calm Cooperation Cooperative Perception Coherent Interest in Health Problem Asks Questions Education Importance Acknowledges Need Does Patient Smoke tobacco or other Yes substances Smoking Status Current every day smoker Is Patient Diabetic No Functional Assessment Recent Decline in Ability to Perform Denies Any Declines WC - Nurse 1 - General Ulcer Measurement Start: 09/04/24 14:12 Freq: Status: Active Protocol: Activity Type Activity Date Activity User E-sign Co-sign Detail Recorded Client Recorded Date Recorded By Document 09/04/24 14:13 DL [id number] 09/04/24 14:20 DL Document 09/11/24 13:50 DL [id number] 09/11/24 13:58 DL 09/04/24 09/11/24 14:13 13:50 Wound Center Nurse 1 Right Calf (cm) 44 38.5 Right Ankle (cm) 27 26.7 Left Calf (cm) 46 39.3 Left Ankle (cm) 27 24.7 - Nurse 2 - General Ulcer CM Notes Start: 09/04/24 14:12 Freq: Status: Active Protocol: Activity Type Activity Date Activity User E-sign Co-sign Detail Recorded Client Recorded Date Recorded By Document 09/04/24 14:27 [id number] 09/04/24 14:28 Document 09/11/24 14:09 [id number] 09/11/24 14:09 09/04/24 09/11/24 14:27 14:09 Pain Scale: 0-10 Numeric Is Patient Pain Free? Yes Yes - Nurse 3 - General Ulcer D/C NN Start: 09/04/24 14:12 Freq: Status: Active Protocol: Activity Type Activity Date Activity User E-sign Co-sign Detail Recorded Client Recorded Date Recorded By Document 09/04/24 14:44 [id number] 09/04/24 14:44 09/04/24 14:44 Wound Care Center Nurse 3 BLE -Lotion applied to leg before Yes compression wrap -Multi-Layered Wrap Application Multi-Layer Comp - Bilat ($ ) -Multi-Layer Compression Bilat (Qty 1 applied) Pain Scale: 0-10 Numeric Is Patient Pain Free? Yes WC - Visit Discharge Discharge Condition Stable Ambulatory Status Ambulatory Transportation Private Auto Medication Reconcilliation completed & No provided to patient/care provider Clinical Summary of Care Provided Yes Assessment/Plan Assessment/Plan (1) Lymphedema: CODE(S): I89.0 - Lymphedema, not elsewhere classified (2) Lower extremity edema: CODE(S): R60.0 - Localized edema (3) Lipodermatosclerosis: CODE(S): M79.3 - Panniculitis, unspecified PLAN: Plan She has done very well with the compression wraps over this past week and she has been very consistent with leg elevation and exercise and she is encouraged to continue with these efforts. Her edema is much improved compared to last week. Will again apply 3M wraps to the bilateral lower extremities for compression. These will remain in place for 1 week. She is instructed to keep these clean and dry. In the future, plan to order velcro compression garments once we feel she is closer to her baseline lower extremity size. Pending progress with these conservative compression efforts will consider lymphedema pumps as well. She will return in 1 week, sooner as needed.
[2024-09-18 14:34] VITALS: BP 120/46; PULSE 70; RESP 18; TEMP 35.9; BMI 38.3
--- NOTE | 2024-09-18 14:56 | PCM.WC.PN ---
History of Present Illness Date of Service: 09/18/24 Chief Complaint: Bilateral lower extremity edema History of Wound: HEAVEN HERRMANN, is a 54 F who presents to the office today for evaluation and management of significant bilateral lower extremity edema with associated lower extremity discomfort. She is known to me from a recent visit at the vascular surgery office, I have referred her here for compression wraps. She has had bilateral lower extremity edema for many years and it has been progressively worsening. The swelling gets worse as the day goes on and worse the more she is up on her feet. She used to like to walk around [employer] etc but can no longer do this. She has difficulty with any sustained activity due to her leg swelling and heaviness in addition to her chronic back pain. She does not have any wounds or weeping at present. She does also report some dyspnea on exertion with stairs or prolonged activity and also some dyspnea with lying flat. She is a smoker, reports she has had negative testing for COPD in the past. She has chronic back pain with DDD which has also been present many years, not currently following with pain management. She has had prior hysterectomy, cholecystectomy, and procedure for bladder prolapse. She denies any lymph node dissection, radiation to the abdomen or pelvis. She denies any history of known VTE. She does have compression stockings, not sure of strength. She feels like they may her legs burn and sometimes feel too tight around her toes. She wears them at night, not during the day. She does elevate her legs with resting. She has had an arterial study which demonstrated normal ABIs and waveforms bilaterally. She has had a venous reflux study which was negative for DVT and showed only focal below-knee GSV reflux on the left and no significant reflux on the right. She has not had any cardiac testing by her report. Subjective Subjective Heaven has done very well with the 3M wraps again this week, she wore them all week. She reports that she has noticed a big improvement in how her legs feel and in their size even though she does still have persistent edema. She has been consistent with elevating her legs at all times of rest and staying active throughout the day. Objective Data Objective Data Vital Signs: Vital Signs Temp Pulse Resp BP O2 Del Method 96.6 F L 70 18 120/46 L Room Air 09/18/24 14:34 09/18/24 14:34 09/18/24 14:34 09/18/24 14:34 09/18/24 14:34 Oxygen Delivery Method Room Air Weight: 244 lb 14.846 oz Body Mass Index (BMI) 38.3 Charges/Coding Visit Charges Office Visits / Consults: 58115 OV L3 Est 20min Physical Exam Narrative Const General: cooperative, comfortable and no acute distress Nutritional Appearance: obese Orientation: alert, awake and oriented x3 HENMT Head: normocephalic and atraumatic Ears: hearing grossly normal bilaterally and external ears normal Nose: external nose normal Eyes General: appearance normal, both eyes and all related structures EOM: EOM intact bilaterally Neck Neck: normal visual inspection and trachea midline Resp Effort & Inspection: normal respiratory effort, able to speak in complete sentences, no grunting, not labored, no respiratory distress and no retractions Cardio Rate: regular rate Rhythm: regular rhythm Pulses: radial pulses present, posterior tibial pulses present and dorsalis pedis present Skin General: no rashes or lesions noted Wounds: no wounds Neuro General: moves all extremities, no focal motor deficits and CN's II-XI intact bilaterally Speech: speech normal Extremities Lower Extremity Edema: +2: Bilateral and Color Changes: Bilateral Veins: Bilateral: Lipodermatosclerosis Additional Details: Bilateral lower extremity edema with circumference measurements as follows: Right ankle: 24.2 cm Right calf: 39 cm Left ankle: 24.2 cm Left calf: 39.5 cm Psych Appearance: grossly normal Mental Status: mental status grossly normal Affect: normal affect Speech and Movement: speech and movement normal Attitude: cooperative Judgment: judgment good Debridement Note Debridement Note No debridement was completed: No debridement was completed today Post-Debridement Measurements and Additional Note: Post-Debridement Measurements/Treatment - Nurse 1 - General Ulcer Assessment Start: 09/04/24 14:12 Freq: Status: Active Protocol: BETTE.MELISSA Activity Type Activity Date Activity User E-sign Co-sign Detail Recorded Client Recorded Date Recorded By Document 09/04/24 14:13 DL [id number] 09/04/24 14:20 DL Document 09/11/24 13:50 DL [id number] 09/11/24 13:58 DL Document 09/18/24 14:34 KW [id number] 09/18/24 14:37 KW 09/04/24 09/11/24 09/18/24 14:13 13:50 14:34 WC - Today's Visit Information Type of service Initial Visit Follow-up Visit Follow-up Visit (Physician/MACHINE STRAW HAT PRESSER (Physician/MACHINE STRAW HAT PRESSER ) ) Arrival Mode Ambulatory Ambulatory Ambulatory Transfer Assistance None None Patient Identification Verified (Name & Yes Yes Yes ) Patient Requires Transmission-Based No No Precautions Height and Weight Height 5 ft 7 in Weight 244 lb 14.846 oz Weight in Pounds 244.9 lbs Weight Measurement Method Stated by Patient Body Mass Index (BMI) 38.3 38.3 38.3 BMI Classification Obese Obese Obese Vital Signs Temperature (97.8 F-99.1 F) 98.1 F 98.1 F 96.6 F L Temperature Source Temporal Temporal Temporal Pulse Rate (60-100) 66 63 70 Pulse Location Monitor Monitor Monitor Respiratory Rate (12-18) 18 18 18 Respiratory rate source Observation Observation Observation Oxygen Delivery Method Room Air Blood Pressure (90/60-120/80) 102/61 101/64 120/46 L Blood Pressure Mean (mm Hg) 74 76 70 Source Monitor Monitor Monitor Position Sitting Blood Pressure Location Right Arm History Since Last Visit- (Skip if this is Patient's initial visit) Have you changed medications since your No No last visit? Any new allergies or adverse reactions No No Had a fall/change in ADL's that may No No increase risk of falls Signs or symptoms of abuse and/or No No neglect since last visit Have you been in the hospital since your No No last visit? Has dressing in place as prescribed No No Has compression in place as prescribed Yes No Has offloadiing in place as prescribed N/A No Experienced any changes in pain level or No No management Left Footwear Regular Shoe Right Footwear Regular Shoe Pain Scale: 0-10 Numeric Is Patient Pain Free? Yes Yes Yes Communication Assessment Preferred language Welsh Able to Read Yes Able to Write Yes Communication Tools None Right Hearing Abillity Normal Left Hearing Abillity Normal Visual Assistive Devices Glasses Teaching Assessment Preferences Verbal,Written Barriers to Learning None Readiness To Learn Fair Willingness to Engage in Self Management Med Activies Readiness to Engage in Self Management Med Activities Anxiety Level Calm Cooperation Cooperative Perception Coherent Interest in Health Problem Asks Questions Education Importance Acknowledges Need Does Patient Smoke tobacco or other Yes substances Smoking Status Current every day smoker Is Patient Diabetic No Functional Assessment Recent Decline in Ability to Perform Denies Any Declines WC - Nurse 1 - General Ulcer Measurement Start: 09/04/24 14:12 Freq: Status: Active Protocol: Activity Type Activity Date Activity User E-sign Co-sign Detail Recorded Client Recorded Date Recorded By Document 09/04/24 14:13 DL [id number] 09/04/24 14:20 DL Document 09/11/24 13:50 DL [id number] 09/11/24 13:58 DL Document 09/18/24 14:34 KW [id number] 09/18/24 14:37 KW 09/04/24 09/11/24 09/18/24 14:13 13:50 14:34 Wound Center Nurse 1 Right Calf (cm) 44 38.5 39 Right Ankle (cm) 27 26.7 24.2 Left Calf (cm) 46 39.3 39.5 Left Ankle (cm) 27 24.7 24.2 WC - Nurse 2 - General Ulcer CM Notes Start: 09/04/24 14:12 Freq: Status: Active Protocol: Activity Type Activity Date Activity User E-sign Co-sign Detail Recorded Client Recorded Date Recorded By Document 09/04/24 14:27 [id number] 09/04/24 14:28 Document 09/11/24 14:09 [id number] 09/11/24 14:09 Document 09/18/24 14:44 [id number] 09/18/24 14:45 09/04/24 09/11/24 09/18/24 14:27 14:09 14:44 Pain Scale: 0-10 Numeric Is Patient Pain Free? Yes Yes Yes - Nurse 3 - General Ulcer D/C NN Start: 09/04/24 14:12 Freq: Status: Active Protocol: Activity Type Activity Date Activity User E-sign Co-sign Detail Recorded Client Recorded Date Recorded By Document 09/04/24 14:44 KW [id number] 09/04/24 14:44 Document 09/11/24 14:31 DL [id number] 09/11/24 14:32 DL 09/04/24 09/11/24 14:44 14:31 Wound Care Center Nurse 3 Tessie-Wound Care Lotion BLE -Lotion applied to leg before Yes compression wrap -Multi-Layered Wrap Application Multi-Layer Multi-Layer Comp - Bilat ($ Comp - Bilat ($ ) ) -Multi-Layer Compression Bilat (Qty 1 1 applied) Treatment Response Procedure Tolerated Well Pain Scale: 0-10 Numeric Is Patient Pain Free? Yes Yes WC - Visit Discharge Discharge Condition Stable Stable Ambulatory Status Ambulatory Ambulatory Transportation Private Auto Private Auto Medication Reconcilliation completed & No provided to patient/care provider Clinical Summary of Care Provided Yes Assessment/Plan Assessment/Plan (1) Lymphedema: CODE(S): I89.0 - Lymphedema, not elsewhere classified (2) Lower extremity edema: CODE(S): R60.0 - Localized edema (3) Lipodermatosclerosis: CODE(S): M79.3 - Panniculitis, unspecified PLAN: Plan She has done very well with the compression wraps over this past week and she has been very consistent with leg elevation and exercise and she is encouraged to continue with these efforts. Her edema is relatively stable through the calf and improved through the ankles compared to last week. Will again apply 3M wraps to the bilateral lower extremities for compression. These will remain in place for 1 week. She is instructed to keep these clean and dry. Will order Circaids this week, this will be a great option for her to manage her edema independently at home going forward. She does have stage II lymphedema and while she has had some improvement with conservative management measures including compression wraps, leg elevation, and exercise with ambulation/calf pumps significant symptoms still persist including edema, leg tightness/heaviness. She would benefit from lymphedema pumps to help manage her current symptoms and slow progression. Will submit to insurance for these via [employer]. She will return in 1 week, sooner as needed.
[2024-09-25 13:30] VITALS: BP 112/63; PULSE 66; RESP 16; TEMP 36.4; BMI 38.3
--- NOTE | 2024-09-25 14:23 | PN.PCM_ITS ---
History of Present Illness Date of Service: 09/25/24 Chief Complaint: Bilateral lower extremity edema History of Wound: HEAVEN HERRMANN, is a 54 F who presents to the office today for evaluation and management of significant bilateral lower extremity edema with associated lower extremity discomfort. She is known to me from a recent visit at the vascular surgery office, I have referred her here for compression wraps. She has had bilateral lower extremity edema for many years and it has been progressively worsening. The swelling gets worse as the day goes on and worse the more she is up on her feet. She used to like to walk around [employer] etc but can no longer do this. She has difficulty with any sustained activity due to her leg swelling and heaviness in addition to her chronic back pain. She does not have any wounds or weeping at present. She does also report some dyspnea on exertion with stairs or prolonged activity and also some dyspnea with lying flat. She is a smoker, reports she has had negative testing for COPD in the past. She has chronic back pain with DDD which has also been present many years, not currently following with pain management. She has had prior hysterectomy, cholecystectomy, and procedure for bladder prolapse. She denies any lymph node dissection, radiation to the abdomen or pelvis. She denies any history of known VTE. She does have compression stockings, not sure of strength. She feels like they may her legs burn and sometimes feel too tight around her toes. She wears them at night, not during the day. She does elevate her legs with resting. She has had an arterial study which demonstrated normal ABIs and waveforms bilaterally. She has had a venous reflux study which was negative for DVT and showed only focal below-knee GSV reflux on the left and no significant reflux on the right. She has not had any cardiac testing by her report. Subjective Subjective Heaven has done very well with the 3M wraps again this week, she wore them all week. She has been consistent with elevating her legs at all times of rest and staying active throughout the day. Objective Data Objective Data Vital Signs: Vital Signs Temp Pulse Resp BP O2 Del Method 97.6 F L 66 16 112/63 Room Air 09/25/24 13:30 09/25/24 13:30 09/25/24 13:30 09/25/24 13:30 09/18/24 14:34 Oxygen Delivery Method Room Air Weight: 244 lb 14.846 oz Body Mass Index (BMI) 38.3 Charges/Coding Visit Charges Office Visits / Consults: 33342 OV L3 Est 20min Physical Exam Narrative Const General: cooperative, comfortable and no acute distress Nutritional Appearance: obese Orientation: alert, awake and oriented x3 HENMT Head: normocephalic and atraumatic Ears: hearing grossly normal bilaterally and external ears normal Nose: external nose normal Eyes General: appearance normal, both eyes and all related structures EOM: EOM intact bilaterally Neck Neck: normal visual inspection and trachea midline Resp Effort & Inspection: normal respiratory effort, able to speak in complete sentences, no grunting, not labored, no respiratory distress and no retractions Cardio Rate: regular rate Rhythm: regular rhythm Pulses: radial pulses present, posterior tibial pulses present and dorsalis pedis present Skin General: no rashes or lesions noted Wounds: no wounds Neuro General: moves all extremities, no focal motor deficits and CN's II-XI intact bilaterally Speech: speech normal Extremities Lower Extremity Edema: +2: Bilateral and Color Changes: Bilateral Veins: Bilateral: Lipodermatosclerosis Additional Details: Bilateral lower extremity edema with circumference measurements as follows: Right ankle: 23.2 cm Right calf: 38 cm Left ankle: 24 cm Left calf: 38.8 cm Psych Appearance: grossly normal Mental Status: mental status grossly normal Affect: normal affect Speech and Movement: speech and movement normal Attitude: cooperative Judgment: judgment good Debridement Note Debridement Note No debridement was completed: No debridement was completed today Post-Debridement Measurements and Additional Note: Post-Debridement Measurements/Treatment WC - Nurse 1 - General Ulcer Assessment Start: 09/04/24 14:12 Freq: Status: Active Protocol: DANIELA Activity Type Activity Date Activity User E-sign Co-sign Detail Recorded Client Recorded Date Recorded By Document 09/04/24 14:13 DL [id number] 09/04/24 14:20 DL Document 09/11/24 13:50 DL [id number] 09/11/24 13:58 DL Document 09/18/24 14:34 KW [id number] 09/18/24 14:37 KW Document 09/25/24 13:30 DL [id number] 09/25/24 13:33 DL 09/04/24 09/11/24 09/18/24 14:13 13:50 14:34 - Today's Visit Information Type of service Initial Visit Follow-up Visit Follow-up Visit (Physician/MEDICAL INSTRUCTOR (Physician/MEDICAL INSTRUCTOR ) ) Arrival Mode Ambulatory Ambulatory Ambulatory Transfer Assistance None None Patient Identification Verified (Name & Yes Yes Yes ) Patient Requires Transmission-Based No No Precautions Height and Weight Height 5 ft 7 in Weight 244 lb 14.846 oz Weight in Pounds 244.9 lbs Weight Measurement Method Stated by Patient Body Mass Index (BMI) 38.3 38.3 38.3 BMI Classification Obese Obese Obese Vital Signs Temperature (97.8 F-99.1 F) 98.1 F 98.1 F 96.6 F L Temperature Source Temporal Temporal Temporal Pulse Rate (60-100) 66 63 70 Pulse Location Monitor Monitor Monitor Respiratory Rate (12-18) 18 18 18 Respiratory rate source Observation Observation Observation Oxygen Delivery Method Room Air Blood Pressure (90/60-120/80) 102/61 101/64 120/46 L Blood Pressure Mean (mm Hg) 74 76 70 Source Monitor Monitor Monitor Position Sitting Blood Pressure Location Right Arm History Since Last Visit- (Skip if this is Patient's initial visit) Have you changed medications since your No No last visit? Any new allergies or adverse reactions No No Had a fall/change in ADL's that may No No increase risk of falls Signs or symptoms of abuse and/or No No neglect since last visit Have you been in the hospital since your No No last visit? Has dressing in place as prescribed No No Has compression in place as prescribed Yes No Has offloadiing in place as prescribed N/A No Experienced any changes in pain level or No No management Left Footwear Regular Shoe Right Footwear Regular Shoe Pain Scale: 0-10 Numeric Is Patient Pain Free? Yes Yes Yes Communication Assessment Preferred language Andorran Able to Read Yes Able to Write Yes Communication Tools None Right Hearing Abillity Normal Left Hearing Abillity Normal Visual Assistive Devices Glasses Teaching Assessment Preferences Verbal,Written Barriers to Learning None Readiness To Learn Fair Willingness to Engage in Self Management Med Activies Readiness to Engage in Self Management Med Activities Anxiety Level Calm Cooperation Cooperative Perception Coherent Interest in Health Problem Asks Questions Education Importance Acknowledges Need Does Patient Smoke tobacco or other Yes substances Smoking Status Current every day smoker Is Patient Diabetic No Functional Assessment Recent Decline in Ability to Perform Denies Any Declines 09/25/24 13:30 WC - Today's Visit Information Type of service Follow-up Visit (Physician/MEDICAL INSTRUCTOR ) Arrival Mode Ambulatory Transfer Assistance None Patient Identification Verified (Name & Yes ) Patient Requires Transmission-Based No Precautions Height and Weight Height Weight Weight in Pounds Weight Measurement Method Body Mass Index (BMI) 38.3 BMI Classification Obese Vital Signs Temperature (97.8 F-99.1 F) 97.6 F L Temperature Source Temporal Pulse Rate (60-100) 66 Pulse Location Monitor Respiratory Rate (12-18) 16 Respiratory rate source Observation Oxygen Delivery Method Blood Pressure (90/60-120/80) 112/63 Blood Pressure Mean (mm Hg) 79 Source Monitor Position Blood Pressure Location History Since Last Visit- (Skip if this is Patient's initial visit) Have you changed medications since your No last visit? Any new allergies or adverse reactions No Had a fall/change in ADL's that may No increase risk of falls Signs or symptoms of abuse and/or No neglect since last visit Have you been in the hospital since your No last visit? Has dressing in place as prescribed Yes Has compression in place as prescribed No Has offloadiing in place as prescribed N/A Experienced any changes in pain level or No management Left Footwear Right Footwear Pain Scale: 0-10 Numeric Is Patient Pain Free? Yes Communication Assessment Preferred language Able to Read Able to Write Communication Tools Right Hearing Abillity Left Hearing Abillity Visual Assistive Devices Teaching Assessment Preferences Barriers to Learning Readiness To Learn Willingness to Engage in Self Management Activies Readiness to Engage in Self Management Activities Anxiety Level Cooperation Perception Interest in Health Problem Education Importance Does Patient Smoke tobacco or other substances Smoking Status Is Patient Diabetic Functional Assessment Recent Decline in Ability to Perform WC - Nurse 1 - General Ulcer Measurement Start: 09/04/24 14:12 Freq: Status: Active Protocol: Activity Type Activity Date Activity User E-sign Co-sign Detail Recorded Client Recorded Date Recorded By Document 09/04/24 14:13 DL [id number] 09/04/24 14:20 DL Document 09/11/24 13:50 DL [id number] 09/11/24 13:58 DL Document 09/18/24 14:34 KW [id number] 09/18/24 14:37 KW Document 09/25/24 13:30 DL [id number] 09/25/24 13:33 DL 09/04/24 09/11/24 09/18/24 14:13 13:50 14:34 Wound Center Nurse 1 Right Calf (cm) 44 38.5 39 Right Ankle (cm) 27 26.7 24.2 Left Calf (cm) 46 39.3 39.5 Left Ankle (cm) 27 24.7 24.2 09/25/24 13:30 Wound Center Nurse 1 Right Calf (cm) 38 Right Ankle (cm) 23.2 Left Calf (cm) 38.8 Left Ankle (cm) 24 WC - Nurse 2 - General Ulcer CM Notes Start: 09/04/24 14:12 Freq: Status: Active Protocol: Activity Type Activity Date Activity User E-sign Co-sign Detail Recorded Client Recorded Date Recorded By Document 09/04/24 14:27 GM [id number] 09/04/24 14:28 GM Document 09/11/24 14:09 GM [id number] 09/11/24 14:09 GM Document 09/18/24 14:44 GM [id number] 09/18/24 14:45 GM Document 09/25/24 14:05 GM [id number] 09/25/24 14:06 GM 09/04/24 09/11/24 09/18/24 14:27 14:09 14:44 Pain Scale: 0-10 Numeric Is Patient Pain Free? Yes Yes Yes 09/25/24 14:05 Pain Scale: 0-10 Numeric Is Patient Pain Free? Yes - Nurse 3 - General Ulcer D/C NN Start: 09/04/24 14:12 Freq: Status: Active Protocol: Activity Type Activity Date Activity User E-sign Co-sign Detail Recorded Client Recorded Date Recorded By Document 09/04/24 14:44 KW [id number] 09/04/24 14:44 KW Document 09/11/24 14:31 DL [id number] 09/11/24 14:32 DL Document 09/18/24 14:57 KW [id number] 09/18/24 14:57 KW Document 09/25/24 14:18 DL [id number] 09/25/24 14:19 DL 09/04/24 09/11/24 09/18/24 14:44 14:31 14:57 Wound Care Center Nurse 3 Tessie-Wound Care Lotion BLE -Lotion applied to leg before Yes Yes compression wrap -Multi-Layered Wrap Application Multi-Layer Multi-Layer Multi-Layer Comp - Bilat ($ Comp - Bilat ($ Comp - Bilat ($ ) ) ) -Tubular Bandage -Size of Tubigrip Used -Size C ($) -Multi-Layer Compression Bilat (Qty 1 1 1 applied) Treatment Response Procedure Tolerated Well Pain Scale: 0-10 Numeric Is Patient Pain Free? Yes Yes Yes WC - Visit Discharge Discharge Condition Stable Stable Stable Ambulatory Status Ambulatory Ambulatory Ambulatory Transportation Private Auto Private Auto Private Auto Medication Reconcilliation completed & No No provided to patient/care provider Clinical Summary of Care Provided Yes Yes 09/25/24 14:18 Wound Care Center Nurse 3 Tessie-Wound Care BLE -Lotion applied to leg before compression wrap -Multi-Layered Wrap Application -Tubular Bandage Double Layer -Size of Tubigrip Used Size C -Size C ($) 2 -Multi-Layer Compression Bilat (Qty applied) Treatment Response Procedure Tolerated Well Pain Scale: 0-10 Numeric Is Patient Pain Free? Yes WC - Visit Discharge Discharge Condition Stable Ambulatory Status Ambulatory Transportation Private Auto Medication Reconcilliation completed & provided to patient/care provider Clinical Summary of Care Provided Assessment/Plan Assessment/Plan (1) Lymphedema: CODE(S): I89.0 - Lymphedema, not elsewhere classified (2) Lower extremity edema: CODE(S): R60.0 - Localized edema (3) Lipodermatosclerosis: CODE(S): M79.3 - Panniculitis, unspecified PLAN: Plan She has done very well with the compression wraps over this past week and she has been very consistent with leg elevation and exercise and she is encouraged to continue with these efforts. Her edema is relatively stable through the calf and improved through the ankles compared to last week. We do not have 3M wraps in stock this week. Will apply high-strength Tubigrips instead for now. She is instructed to leave these on at all times but can remove to take a shower. Will order Circaids this week, this will be a great option for her to manage her edema independently at home going forward. She does have stage II lymphedema and while she has had some improvement with conservative management measures including compression wraps, leg elevation, and exercise with ambulation/calf pumps significant symptoms still persist including edema, leg tightness/heaviness. She would benefit from lymphedema pumps to help manage her current symptoms and slow progression. Will submit to insurance for these via [employer]. She will return in 1 week for a nurse visit to have 3M wraps placed and in two weeks to see me. She is to call sooner with concerns.
== END 2024-09-29 23:59 | disposition home or self-care (01) ==
LOC: WC 13:30
PROVIDERS: PCP Family Medicine Geriatric Medicine; Referring Provider Family Medicine Geriatric Medicine; Visit Provider Physician Assistant
DX: I89.0 Lymphedema, not elsewhere classified (principal); R60.0 Localized edema; F17.200 Nicotine dependence, unspecified, uncomplicated; Z90.710 Acquired absence of both cervix and uterus; Z82.49 Family history of ischemic heart disease and other diseases of the circulatory system; Z79.890 Hormone replacement therapy; G89.29 Other chronic pain; Z90.49 Acquired absence of other specified parts of digestive tract; M79.3 Panniculitis, unspecified
CPT/HCPCS: 29581; 99213; G0463

== ENCOUNTER → 2024-10-01 | Outpatient (CLI) | payer BC, SELFPAY ==
--- NOTE | 2024-10-01 07:38 | ECHOCS_ITS ---
Reason For Study Reason For Study: Generalized Edema Procedure This was a 2D Doppler, Color Flow transthoracic echocardiogram. The study was technically difficult. Exam performed in department. Left Ventricle Normal LV size. Left ventricular systolic function is normal. The left ventricular ejection fraction is 65 %. No regional wall motion abnormalities noted. Right Ventricle Normal RV size. Normal systolic function. Atria Normal left atrium. Normal right atrium. Mitral Valve Normal mitral valve. Tricuspid Valve Normal tricuspid valve. Aortic Valve Trisinus/trileaflet aortic valve. Pulmonic Valve Normal pulmonic valve. Great Vessels Normal aortic root. The pulmonary artery is normal size. Normal inferior vena cava. Pericardium/Pleural No pericardial effusion. Medication 22 gauge I.V. with prn adaptor inserted into right arm. Diluted definity 3ml given slow IV push to enhance endocardial definition. MMode/2D Measurements & Calculations LVIDd: 5.6 cm IVSd: 0.86 cm Ao root diam: 3.8 cm LVIDs: 3.3 cm LVPWd: 0.83 cm FS: 41.0 % LAV(MOD-bp): 60.4 ml LVAd ap4: 31.5 cm2 SV(MOD-sp4): 63.9 ml LAV(MOD-bp) Indexed: 27.6 ml/m2 LVLd ap4: 7.3 cm SI(MOD-sp4): 29.3 ml/m2 LAV(MOD-sp2): 71.6 ml EDV(MOD-sp4): 109.8 ml LAV(MOD-sp4): 51.1 ml EDV(sp4-el): 114.5 ml LVAs ap4: 18.0 cm2 LVLs ap4: 5.5 cm ESV(MOD-sp4): 45.9 ml ESV(sp4-el): 49.6 ml EF(MOD-sp4): 58.2 % EF(sp4-el): 56.7 % SV(sp4-el): 64.9 ml LA A4 area: 19.0 cm2 LA dimension(2D): 4.4 cm TAPSE: 1.9 cm Time Measurements MV dec time: 0.22 sec Doppler Measurements & Calculations MV E max lamont: 87.0 cm/sec Lat Peak E' Lamont: 13.2 cm/sec Med Peak E' Lamont: 12.4 cm/sec MV A max lamont: 61.6 cm/sec E/E' lat: 6.6 E/E' med: 7.0 MV E/A: 1.4 MV V2 max: 95.1 cm/sec MV P1/2t max lamont: 98.0 cm/sec Ao V2 max: 141.2 cm/sec MV max P.6 mmHg MV P1/2t: 74.3 msec Ao max P.0 mmHg MV V2 mean: 49.5 cm/sec Ao V2 mean: 100.1 cm/sec MV mean P.1 mmHg MV dec slope: 386.3 cm/sec2 Ao mean P.5 mmHg MV V2 VTI: 28.9 cm MVA(P1/2t): 3.0 cm2 Ao V2 VTI: 34.6 cm AV (velocity ratio): 0.79 LV V1 max: 112.4 cm/sec TR max lamont: 294.9 cm/sec LV V1 max P.1 mmHg TR max P.8 mmHg LV V1 mean P.9 mmHg LV V1 mean: 80.7 cm/sec LV V1 VTI: 27.4 cm ECHO/Echo Complete W/ Contrast Interpretation Summary Normal LV size. Left ventricular systolic function is normal. The left ventricular ejection fraction is 65 %. Contrast injection was performed. Ordering Physician: Cyndy Quinn Referring Physician: Cyndy Quinn Performed By: Alberto Goldstein RCS
== END | disposition home or self-care (01) ==
PROVIDERS: PCP Family Medicine Geriatric Medicine; Referring Provider Physician Assistant; Visit Provider Physician Assistant
DX: R60.0 Localized edema (principal)
CPT/HCPCS: 93306; Q9957; A4216; C8929

== ENCOUNTER 2024-10-23 14:00 | Outpatient (RCR) | payer BC, SELFPAY ==
[2024-10-02 13:56] VITALS: BP 120/75; PULSE 64; RESP 18; TEMP 36.9
[2024-10-09 13:17] VITALS: BP 121/65; PULSE 60; RESP 16; TEMP 36.5
--- NOTE | 2024-10-09 17:21 | PCM.WC.PN ---
History of Present Illness Date of Service: 10/09/24 Chief Complaint: Bilateral lower extremity edema History of Wound: PAPI HERRMANN, is a 54 F who presents to the office today for evaluation and management of significant bilateral lower extremity edema with associated lower extremity discomfort. She is known to me from a recent visit at the vascular surgery office, I have referred her here for compression wraps. She has had bilateral lower extremity edema for many years and it has been progressively worsening. The swelling gets worse as the day goes on and worse the more she is up on her feet. She used to like to walk around flee markets etc but can no longer do this. She has difficulty with any sustained activity due to her leg swelling and heaviness in addition to her chronic back pain. She does not have any wounds or weeping at present. She does also report some dyspnea on exertion with stairs or prolonged activity and also some dyspnea with lying flat. She is a smoker, reports she has had negative testing for COPD in the past. She has chronic back pain with DDD which has also been present many years, not currently following with pain management. She has had prior hysterectomy, cholecystectomy, and procedure for bladder prolapse. She denies any lymph node dissection, radiation to the abdomen or pelvis. She denies any history of known VTE. She does have compression stockings, not sure of strength. She feels like they may her legs burn and sometimes feel too tight around her toes. She wears them at night, not during the day. She does elevate her legs with resting. She has had an arterial study which demonstrated normal ABIs and waveforms bilaterally. She has had a venous reflux study which was negative for DVT and showed only focal below-knee GSV reflux on the left and no significant reflux on the right. She has not had any cardiac testing by her report. Subjective Subjective She did well with the Tubigrips this past week; she is able to get them on and off herself and does prefer these to the wraps for ease of showering etc. She still has not heard any communication regarding the compress garments or lymphedema pumps. Objective Data Objective Data Vital Signs: Vital Signs Temp Pulse Resp BP 97.7 F L 60 16 121/65 H 10/09/24 13:17 10/09/24 13:17 10/09/24 13:17 10/09/24 13:17 Charges/Coding Visit Charges Office Visits / Consults: 21026 OV L3 Est 20min Physical Exam Narrative Const General: cooperative, comfortable and no acute distress Nutritional Appearance: obese Orientation: alert, awake and oriented x3 HENMT Head: normocephalic and atraumatic Ears: hearing grossly normal bilaterally and external ears normal Nose: external nose normal Eyes General: appearance normal, both eyes and all related structures EOM: EOM intact bilaterally Neck Neck: normal visual inspection and trachea midline Resp Effort & Inspection: normal respiratory effort, able to speak in complete sentences, no grunting, not labored, no respiratory distress and no retractions Cardio Rate: regular rate Rhythm: regular rhythm Pulses: radial pulses present, posterior tibial pulses present and dorsalis pedis present Skin General: no rashes or lesions noted Wounds: no wounds Neuro General: moves all extremities, no focal motor deficits and CN's II-XI intact bilaterally Speech: speech normal Extremities Lower Extremity Edema: +2: Bilateral and Color Changes: Bilateral Veins: Bilateral: Lipodermatosclerosis Additional Details: Bilateral lower extremity edema with circumference measurements as follows: Right ankle: 27 cm Right calf: 40 cm Left ankle: 27.5 cm Left calf: 41 cm Psych Appearance: grossly normal Mental Status: mental status grossly normal Affect: normal affect Speech and Movement: speech and movement normal Attitude: cooperative Judgment: judgment good Debridement Note Debridement Note No debridement was completed: No debridement was completed today Post-Debridement Measurements and Additional Note: Post-Debridement Measurements/Treatment - Nurse 1 - General Ulcer Assessment Start: 10/02/24 13:56 Freq: Status: Active Protocol: .LOWELISA Activity Type Activity Date Activity User E-sign Co-sign Detail Recorded Client Recorded Date Recorded By Document 10/02/24 13:56 RB [id number] 10/02/24 13:58 RB Document 10/09/24 13:17 CP [id number] 10/09/24 13:20 CP 10/02/24 10/09/24 13:56 13:17 - Today's Visit Information Type of service Nurse-only Follow-up Visit Visit (Physician/[facility] ) Arrival Mode Ambulatory Ambulatory Transfer Assistance None Patient Identification Verified (Name & Yes Yes ) Patient Requires Transmission-Based No No Precautions Vital Signs Temperature (97.8 F-99.1 F) 98.5 F 97.7 F L Temperature Source Temporal Temporal Pulse Rate (60-100) 64 60 Pulse Location Monitor Monitor Respiratory Rate (12-18) 18 16 Respiratory rate source Observation Observation Blood Pressure (90/60-120/80) 120/75 121/65 H Blood Pressure Mean (mm Hg) 90 83 Source Monitor Monitor Position Sitting Sitting Blood Pressure Location Left Arm Left Arm History Since Last Visit- (Skip if this is Patient's initial visit) Have you changed medications since your No No last visit? Any new allergies or adverse reactions No No Had a fall/change in ADL's that may No No increase risk of falls Signs or symptoms of abuse and/or No No neglect since last visit Have you been in the hospital since your No No last visit? Has dressing in place as prescribed Yes No Has compression in place as prescribed Yes No Has offloadiing in place as prescribed N/A N/A Experienced any changes in pain level or No No management Left Footwear Regular Shoe Regular Shoe Right Footwear Regular Shoe Regular Shoe Pain Scale: 0-10 Numeric Is Patient Pain Free? Yes Yes WC - Nurse 1 - General Ulcer Measurement Start: 10/02/24 13:56 Freq: Status: Active Protocol: Activity Type Activity Date Activity User E-sign Co-sign Detail Recorded Client Recorded Date Recorded By Document 10/02/24 13:56 RB [id number] 10/02/24 13:58 RB Document 10/09/24 13:17 CP [id number] 10/09/24 13:20 CP 10/02/24 10/09/24 13:56 13:17 Wound Center Nurse 1 Lower Limb Edema Present Yes Right Calf (cm) 40 38.5 Right Ankle (cm) 27 24 Point of Measurement (cm from the medial 24.5 instep) Left Calf (cm) 41 36.5 Left Ankle (cm) 27.5 25.5 WC - Nurse 2 - General Ulcer CM Notes Start: 10/02/24 13:56 Freq: Status: Active Protocol: Activity Type Activity Date Activity User E-sign Co-sign Detail Recorded Client Recorded Date Recorded By Document 10/09/24 13:34 GM [id number] 10/09/24 13:35 GM 10/09/24 13:34 Pain Scale: 0-10 Numeric Is Patient Pain Free? Yes WC - Nurse 3 - General Ulcer D/C NN Start: 10/02/24 13:56 Freq: Status: Active Protocol: Activity Type Activity Date Activity User E-sign Co-sign Detail Recorded Client Recorded Date Recorded By Document 10/02/24 13:56 RB [id number] 10/02/24 13:58 RB Document 10/09/24 13:48 CP [id number] 10/09/24 13:48 CP 10/02/24 10/09/24 13:56 13:48 Pain Scale: 0-10 Numeric Is Patient Pain Free? Yes Yes Wound Care Center Nurse 3 BLE -Lotion applied to leg before Yes compression wrap -Multi-Layered Wrap Application Multi-Layer Multi-Layer Comp - Bilat ($ Comp - Bilat ($ ) ) -Tubular Bandage Double Layer -Size of Tubigrip Used Size D -Size D ($) 2 -Multi-Layer Compression Bilat (Qty 1 2 applied) Treatment Response Procedure Tolerated Well WC - Visit Discharge Discharge Condition Stable Stable Ambulatory Status Ambulatory Ambulatory Transportation Private Auto Medication Reconcilliation completed & No provided to patient/care provider Clinical Summary of Care Provided Yes Yes Assessment/Plan Assessment/Plan (1) Lymphedema: CODE(S): I89.0 - Lymphedema, not elsewhere classified (2) Lower extremity edema: CODE(S): R60.0 - Localized edema (3) Lipodermatosclerosis: CODE(S): M79.3 - Panniculitis, unspecified PLAN: Plan Her edema is worsened this week, the tubigrips were not as effective as the 3M wraps; however, her overall symptoms of discomfort with the swelling remain improved so we will continue with Tubigrips for now. She is instructed to leave these on at all times but can remove to take a shower. RNCM followed up on Circaid order, insurance difficulties so this is still pending. I followed up on lymphedema pump order and they stated they did not receive, I re-faxed this to [facility]. She does have stage II lymphedema and while she has had some improvement with conservative management measures including compression wraps, leg elevation, and exercise with ambulation/calf pumps significant symptoms still persist including edema, leg tightness/heaviness. She would benefit from lymphedema pumps to help manage her current symptoms and slow progression. Will submit to insurance for these via [employer]. She will return in 1 week.
--- NOTE | 2024-10-16 08:56 | PCM.WC.PN ---
History of Present Illness Date of Service: 10/16/24 Chief Complaint: Bilateral lower extremity edema History of Wound: PAPI HERRMANN, is a 54 F who presents to the office today for evaluation and management of significant bilateral lower extremity edema with associated lower extremity discomfort. She is known to me from a recent visit at the vascular surgery office, I have referred her here for compression wraps. She has had bilateral lower extremity edema for many years and it has been progressively worsening. The swelling gets worse as the day goes on and worse the more she is up on her feet. She used to like to walk around [employer] etc but can no longer do this. She has difficulty with any sustained activity due to her leg swelling and heaviness in addition to her chronic back pain. She does not have any wounds or weeping at present. She does also report some dyspnea on exertion with stairs or prolonged activity and also some dyspnea with lying flat. She is a smoker, reports she has had negative testing for COPD in the past. She has chronic back pain with DDD which has also been present many years, not currently following with pain management. She has had prior hysterectomy, cholecystectomy, and procedure for bladder prolapse. She denies any lymph node dissection, radiation to the abdomen or pelvis. She denies any history of known VTE. She does have compression stockings, not sure of strength. She feels like they may her legs burn and sometimes feel too tight around her toes. She wears them at night, not during the day. She does elevate her legs with resting. She has had an arterial study which demonstrated normal ABIs and waveforms bilaterally. She has had a venous reflux study which was negative for DVT and showed only focal below-knee GSV reflux on the left and no significant reflux on the right. She has not had any cardiac testing by her report. Subjective Subjective She did well with the Tubigrips this past week; she is able to get them on and off herself and does prefer these to the wraps for ease of showering etc. She reports her compression garments are getting delivered later this week and she did finally hear from [facility] that they are working on her order. Objective Data Objective Data Vital Signs: Vital Signs Temp Pulse Resp BP 97.7 F L 60 16 121/65 H 10/09/24 13:17 10/09/24 13:17 10/09/24 13:17 10/09/24 13:17 Charges/Coding Visit Charges Office Visits / Consults: [id number] OV L3 Est 20min Physical Exam Narrative Const General: cooperative, comfortable and no acute distress Nutritional Appearance: obese Orientation: alert, awake and oriented x3 HENMT Head: normocephalic and atraumatic Ears: hearing grossly normal bilaterally and external ears normal Nose: external nose normal Eyes General: appearance normal, both eyes and all related structures EOM: EOM intact bilaterally Neck Neck: normal visual inspection and trachea midline Resp Effort & Inspection: normal respiratory effort, able to speak in complete sentences, no grunting, not labored, no respiratory distress and no retractions Cardio Rate: regular rate Rhythm: regular rhythm Pulses: radial pulses present, posterior tibial pulses present and dorsalis pedis present Skin General: no rashes or lesions noted Wounds: no wounds Neuro General: moves all extremities, no focal motor deficits and CN's II-XI intact bilaterally Speech: speech normal Extremities Lower Extremity Edema: +2: Bilateral and Color Changes: Bilateral Veins: Bilateral: Lipodermatosclerosis Additional Details: Bilateral lower extremity edema with circumference measurements as follows: Right ankle: 27 cm Right calf: 40 cm Left ankle: 27.5 cm Left calf: 40 cm Psych Appearance: grossly normal Mental Status: mental status grossly normal Affect: normal affect Speech and Movement: speech and movement normal Attitude: cooperative Judgment: judgment good Debridement Note Debridement Note No debridement was completed: No debridement was completed today Post-Debridement Measurements and Additional Note: Post-Debridement Measurements/Treatment - Nurse 1 - General Ulcer Assessment Start: 10/02/24 13:56 Freq: Status: Active Protocol: DANIELA Activity Type Activity Date Activity User E-sign Co-sign Detail Recorded Client Recorded Date Recorded By Document 10/02/24 13:56 RB [id number] 10/02/24 13:58 RB Document 10/09/24 13:17 CP [id number] 10/09/24 13:20 CP 10/02/24 10/09/24 13:56 13:17 - Today's Visit Information Type of service Nurse-only Follow-up Visit Visit (Physician/[facility] ) Arrival Mode Ambulatory Ambulatory Transfer Assistance None Patient Identification Verified (Name & Yes Yes ) Patient Requires Transmission-Based No No Precautions Vital Signs Temperature (97.8 F-99.1 F) 98.5 F 97.7 F L Temperature Source Temporal Temporal Pulse Rate (60-100) 64 60 Pulse Location Monitor Monitor Respiratory Rate (12-18) 18 16 Respiratory rate source Observation Observation Blood Pressure (90/60-120/80) 120/75 121/65 H Blood Pressure Mean (mm Hg) 90 83 Source Monitor Monitor Position Sitting Sitting Blood Pressure Location Left Arm Left Arm History Since Last Visit- (Skip if this is Patient's initial visit) Have you changed medications since your No No last visit? Any new allergies or adverse reactions No No Had a fall/change in ADL's that may No No increase risk of falls Signs or symptoms of abuse and/or No No neglect since last visit Have you been in the hospital since your No No last visit? Has dressing in place as prescribed Yes No Has compression in place as prescribed Yes No Has offloadiing in place as prescribed N/A N/A Experienced any changes in pain level or No No management Left Footwear Regular Shoe Regular Shoe Right Footwear Regular Shoe Regular Shoe Pain Scale: 0-10 Numeric Is Patient Pain Free? Yes Yes WC - Nurse 1 - General Ulcer Measurement Start: 10/02/24 13:56 Freq: Status: Active Protocol: Activity Type Activity Date Activity User E-sign Co-sign Detail Recorded Client Recorded Date Recorded By Document 10/02/24 13:56 RB [id number] 10/02/24 13:58 RB Document 10/09/24 13:17 CP [id number] 10/09/24 13:20 CP 10/02/24 10/09/24 13:56 13:17 Wound Center Nurse 1 Lower Limb Edema Present Yes Right Calf (cm) 40 38.5 Right Ankle (cm) 27 24 Point of Measurement (cm from the medial 24.5 instep) Left Calf (cm) 41 36.5 Left Ankle (cm) 27.5 25.5 WC - Nurse 2 - General Ulcer CM Notes Start: 10/02/24 13:56 Freq: Status: Active Protocol: Activity Type Activity Date Activity User E-sign Co-sign Detail Recorded Client Recorded Date Recorded By Document 10/09/24 13:34 GM [id number] 10/09/24 13:35 GM 10/09/24 13:34 Pain Scale: 0-10 Numeric Is Patient Pain Free? Yes WC - Nurse 3 - General Ulcer D/C NN Start: 10/02/24 13:56 Freq: Status: Active Protocol: Activity Type Activity Date Activity User E-sign Co-sign Detail Recorded Client Recorded Date Recorded By Document 10/02/24 13:56 RB [id number] 10/02/24 13:58 RB Document 10/09/24 13:48 CP [id number] 10/09/24 13:48 CP 10/02/24 10/09/24 13:56 13:48 Pain Scale: 0-10 Numeric Is Patient Pain Free? Yes Yes Wound Care Center Nurse 3 BLE -Lotion applied to leg before Yes compression wrap -Multi-Layered Wrap Application Multi-Layer Multi-Layer Comp - Bilat ($ Comp - Bilat ($ ) ) -Tubular Bandage Double Layer -Size of Tubigrip Used Size D -Size D ($) 2 -Multi-Layer Compression Bilat (Qty 1 2 applied) Treatment Response Procedure Tolerated Well WC - Visit Discharge Discharge Condition Stable Stable Ambulatory Status Ambulatory Ambulatory Transportation Private Auto Medication Reconcilliation completed & No provided to patient/care provider Clinical Summary of Care Provided Yes Yes Assessment/Plan Assessment/Plan (1) Lymphedema: CODE(S): I89.0 - Lymphedema, not elsewhere classified (2) Lower extremity edema: CODE(S): R60.0 - Localized edema (3) Lipodermatosclerosis: CODE(S): M79.3 - Panniculitis, unspecified PLAN: Plan Will continue Tubigrips for compression. Her Circaids are set to be delivered later this week by her report. She did also hear that [facility] is working on her lymphedema pump order. She does have stage II lymphedema and while she has had some improvement with conservative management measures including compression wraps, leg elevation, and exercise with ambulation/calf pumps significant symptoms still persist including edema, leg tightness/heaviness. She would benefit from lymphedema pumps to help manage her current symptoms and slow progression. Will submit to insurance for these via [employer]. She will return in 1 week.
[2024-10-16 13:28] VITALS: BP 121/71; PULSE 66; RESP 16; TEMP 36
[2024-10-23 14:06] VITALS: BP 104/61; PULSE 66; RESP 16; TEMP 35.8
--- NOTE | 2024-10-23 16:04 | PCM.WC.PN ---
History of Present Illness Date of Service: 10/23/24 Chief Complaint: Bilateral lower extremity edema History of Wound: PAPI HERRMANN, is a 54 F who presents to the office today for evaluation and management of significant bilateral lower extremity edema with associated lower extremity discomfort. She is known to me from a recent visit at the vascular surgery office, I have referred her here for compression wraps. She has had bilateral lower extremity edema for many years and it has been progressively worsening. The swelling gets worse as the day goes on and worse the more she is up on her feet. She used to like to walk around [employer] etc but can no longer do this. She has difficulty with any sustained activity due to her leg swelling and heaviness in addition to her chronic back pain. She does not have any wounds or weeping at present. She does also report some dyspnea on exertion with stairs or prolonged activity and also some dyspnea with lying flat. She is a smoker, reports she has had negative testing for COPD in the past. She has chronic back pain with DDD which has also been present many years, not currently following with pain management. She has had prior hysterectomy, cholecystectomy, and procedure for bladder prolapse. She denies any lymph node dissection, radiation to the abdomen or pelvis. She denies any history of known VTE. She does have compression stockings, not sure of strength. She feels like they may her legs burn and sometimes feel too tight around her toes. She wears them at night, not during the day. She does elevate her legs with resting. She has had an arterial study which demonstrated normal ABIs and waveforms bilaterally. She has had a venous reflux study which was negative for DVT and showed only focal below-knee GSV reflux on the left and no significant reflux on the right. She has not had any cardiac testing by her report. Subjective Subjective She has worsened edema today, notes she was working in her yard in the heat earlier today and noticed the swelling after that; otherwise, had been doing well. She did receive her Circaids. She also just received lymphedema pumps today and has scheduled appt to learn how to use these in the next week. Objective Data Objective Data Vital Signs: Vital Signs Temp Pulse Resp BP 96.5 F L 66 16 104/61 10/23/24 14:06 10/23/24 14:06 10/23/24 14:06 10/23/24 14:06 Charges/Coding Visit Charges Office Visits / Consults: [id number] OV L3 Est 20min Physical Exam Narrative Const General: cooperative, comfortable and no acute distress Nutritional Appearance: obese Orientation: alert, awake and oriented x3 HENMT Head: normocephalic and atraumatic Ears: hearing grossly normal bilaterally and external ears normal Nose: external nose normal Eyes General: appearance normal, both eyes and all related structures EOM: EOM intact bilaterally Neck Neck: normal visual inspection and trachea midline Resp Effort & Inspection: normal respiratory effort, able to speak in complete sentences, no grunting, not labored, no respiratory distress and no retractions Cardio Rate: regular rate Rhythm: regular rhythm Pulses: radial pulses present, posterior tibial pulses present and dorsalis pedis present Skin General: no rashes or lesions noted Wounds: no wounds Neuro General: moves all extremities, no focal motor deficits and CN's II-XI intact bilaterally Speech: speech normal Extremities Lower Extremity Edema: +2: Bilateral and Color Changes: Bilateral Veins: Bilateral: Lipodermatosclerosis Additional Details: Bilateral lower extremity edema Psych Appearance: grossly normal Mental Status: mental status grossly normal Affect: normal affect Speech and Movement: speech and movement normal Attitude: cooperative Judgment: judgment good Debridement Note Debridement Note No debridement was completed: No debridement was completed today Post-Debridement Measurements and Additional Note: Post-Debridement Measurements/Treatment - Nurse 1 - General Ulcer Assessment Start: 10/02/24 13:56 Freq: Status: Active Protocol: [email or web address].[email or web address] Activity Type Activity Date Activity User E-sign Co-sign Detail Recorded Client Recorded Date Recorded By Document 10/02/24 13:56 RB [id number] 10/02/24 13:58 RB Document 10/09/24 13:17 CP [id number] 10/09/24 13:20 CP Document 10/16/24 13:28 ML [id number] 10/16/24 13:29 ML Document 10/23/24 14:06 ML [id number] 10/23/24 14:09 ML 10/02/24 10/09/24 10/16/24 13:56 13:17 13:28 - Today's Visit Information Type of service Nurse-only Follow-up Visit Follow-up Visit Visit (Physician/TECHNICAL PROJECT LEAD (Physician/TECHNICAL PROJECT LEAD ) ) Arrival Mode Ambulatory Ambulatory Ambulatory Transfer Assistance None Patient Identification Verified (Name & Yes Yes Yes ) Patient Requires Transmission-Based No No No Precautions Vital Signs Temperature (97.8 F-99.1 F) 98.5 F 97.7 F L 96.8 F L Temperature Source Temporal Temporal Temporal Pulse Rate (60-100) 64 60 66 Pulse Location Monitor Monitor Monitor Respiratory Rate (12-18) 18 16 16 Respiratory rate source Observation Observation Observation Blood Pressure (90/60-120/80) 120/75 121/65 H 121/71 H Blood Pressure Mean (mm Hg) 90 83 87 Source Monitor Monitor Monitor Position Sitting Sitting Sitting Blood Pressure Location Left Arm Left Arm Right Arm History Since Last Visit- (Skip if this is Patient's initial visit) Have you changed medications since your No No No last visit? Any new allergies or adverse reactions No No No Had a fall/change in ADL's that may No No No increase risk of falls Signs or symptoms of abuse and/or No No No neglect since last visit Have you been in the hospital since your No No No last visit? Has dressing in place as prescribed Yes No No Has compression in place as prescribed Yes No N/A Has offloadiing in place as prescribed N/A N/A N/A Experienced any changes in pain level or No No No management Left Footwear Regular Shoe Regular Shoe Right Footwear Regular Shoe Regular Shoe Pain Scale: 0-10 Numeric Is Patient Pain Free? Yes Yes Yes 10/23/24 14:06 - Today's Visit Information Type of service Follow-up Visit (Physician/TECHNICAL PROJECT LEAD ) Arrival Mode Ambulatory Transfer Assistance None Patient Identification Verified (Name & Yes ) Patient Requires Transmission-Based No Precautions Vital Signs Temperature (97.8 F-99.1 F) 96.5 F L Temperature Source Temporal Pulse Rate (60-100) 66 Pulse Location Monitor Respiratory Rate (12-18) 16 Respiratory rate source Observation Blood Pressure (90/60-120/80) 104/61 Blood Pressure Mean (mm Hg) 75 Source Monitor Position Sitting Blood Pressure Location Left Arm History Since Last Visit- (Skip if this is Patient's initial visit) Have you changed medications since your No last visit? Any new allergies or adverse reactions No Had a fall/change in ADL's that may No increase risk of falls Signs or symptoms of abuse and/or No neglect since last visit Have you been in the hospital since your last visit? Has dressing in place as prescribed No Has compression in place as prescribed Yes Has offloadiing in place as prescribed N/A Experienced any changes in pain level or No management Left Footwear Right Footwear Pain Scale: 0-10 Numeric Is Patient Pain Free? Yes WC - Nurse 1 - General Ulcer Measurement Start: 10/02/24 13:56 Freq: Status: Active Protocol: Activity Type Activity Date Activity User E-sign Co-sign Detail Recorded Client Recorded Date Recorded By Document 10/02/24 13:56 RB [id number] 10/02/24 13:58 RB Document 10/09/24 13:17 CP [id number] 10/09/24 13:20 CP Document 10/16/24 13:30 ML [id number] 10/16/24 13:32 ML Document 10/23/24 14:06 ML [id number] 10/23/24 14:09 ML 10/02/24 10/09/24 10/16/24 13:56 13:17 13:30 Wound Center Nurse 1 Lower Limb Edema Present Yes Right Calf (cm) 40 38.5 40 Right Ankle (cm) 27 24 27 Point of Measurement (cm from the medial 24.5 instep) Left Calf (cm) 41 36.5 40 Left Ankle (cm) 27.5 25.5 27.5 10/23/24 14:06 Wound Center Nurse 1 Lower Limb Edema Present Right Calf (cm) 44 Right Ankle (cm) 29 Point of Measurement (cm from the medial instep) Left Calf (cm) 48.5 Left Ankle (cm) 28.5 WC - Nurse 2 - General Ulcer CM Notes Start: 10/02/24 13:56 Freq: Status: Active Protocol: Activity Type Activity Date Activity User E-sign Co-sign Detail Recorded Client Recorded Date Recorded By Document 10/09/24 13:34 GM [id number] 10/09/24 13:35 GM Document 10/16/24 13:50 BMF [id number] 10/16/24 13:53 BMF Document 10/23/24 14:45 DS [id number] 10/23/24 14:46 DS 10/09/24 10/16/24 10/23/24 13:34 13:50 14:45 Pain Scale: 0-10 Numeric Is Patient Pain Free? Yes Yes Yes WC - Nurse 3 - General Ulcer D/C NN Start: 10/02/24 13:56 Freq: Status: Active Protocol: Activity Type Activity Date Activity User E-sign Co-sign Detail Recorded Client Recorded Date Recorded By Document 10/02/24 13:56 RB [id number] 10/02/24 13:58 RB Document 10/09/24 13:48 CP [id number] 10/09/24 13:48 CP Edit Result 10/09/24 13:48 CP (1) [id number] 10/17/24 15:28 DS Document 10/16/24 14:00 BMF [id number] 10/16/24 14:00 BMF Document 10/23/24 15:01 DL [id number] 10/23/24 15:03 DL (1) BLE - Multi-Layer Compression Bilat (Qty 2 => 1 applied) 10/02/24 10/09/24 10/16/24 13:56 13:48 14:00 Pain Scale: 0-10 Numeric Is Patient Pain Free? Yes Yes Yes Wound Care Center Nurse 3 BLE -Lotion applied to leg before Yes compression wrap -Multi-Layered Wrap Application Multi-Layer Multi-Layer Comp - Bilat ($ Comp - Bilat ($ ) ) -Tubular Bandage Double Layer Double Layer -Size of Tubigrip Used Size D Size D -Size D ($) 2 2 -Other -Multi-Layer Compression Bilat (Qty 1 1 applied) Treatment Response Procedure Procedure Tolerated Well Tolerated Well WC - Visit Discharge Discharge Condition Stable Stable Stable Ambulatory Status Ambulatory Ambulatory Ambulatory Transportation Private Auto Private Auto Medication Reconcilliation completed & No provided to patient/care provider Clinical Summary of Care Provided Yes Yes Notes: 10/23/24 15:01 Pain Scale: 0-10 Numeric Is Patient Pain Free? Yes Wound Care Center Nurse 3 BLE -Lotion applied to leg before compression wrap -Multi-Layered Wrap Application -Tubular Bandage -Size of Tubigrip Used -Size D ($) -Other CircAids -Multi-Layer Compression Bilat (Qty applied) Treatment Response Procedure Tolerated Well WC - Visit Discharge Discharge Condition Stable Ambulatory Status Ambulatory Transportation Private Auto Medication Reconcilliation completed & provided to patient/care provider Clinical Summary of Care Provided Notes: Instructions on CircAid given. Assessment/Plan Assessment/Plan (1) Lymphedema: CODE(S): I89.0 - Lymphedema, not elsewhere classified (2) Lower extremity edema: CODE(S): R60.0 - Localized edema (3) Lipodermatosclerosis: CODE(S): M79.3 - Panniculitis, unspecified PLAN: Plan She was instructed as to how to apply her Circaids and demonstration provided today. She is to wear her Circaids daily for ongoing management of her edema. She received her lymphedema pumps and I advise using these 1-3 times per day for 60 minutes at a time once she completes the training for this. Will plan for follow-up in 3 weeks to see how she is doing with the above long-term management measures. She will call or return sooner as needed. If she is doing very well and has no concerns then she can always cancel the follow-up.
== END 2024-10-30 23:59 | disposition home or self-care (01) ==
LOC: WC 14:00
PROVIDERS: PCP Family Medicine Geriatric Medicine; Referring Provider Family Medicine Geriatric Medicine; Visit Provider Physician Assistant
DX: I89.0 Lymphedema, not elsewhere classified (principal); R60.0 Localized edema; G89.29 Other chronic pain; Z90.710 Acquired absence of both cervix and uterus; F17.200 Nicotine dependence, unspecified, uncomplicated; M79.3 Panniculitis, unspecified; M54.9 Dorsalgia, unspecified; Z90.49 Acquired absence of other specified parts of digestive tract
CPT/HCPCS: 29581; 99213; G0463